=== PATIENT | female | born 1980 ===

== ENCOUNTER 2020-08-18 11:02 | Outpatient (REF) | payer OTHER, SELFPAY ==
[2020-08-18 12:49] LABS: TSH reflex Free T4 0.01 mIU/mL (0.32-4.0)
[2020-08-18 13:00] LABS: Folate 9.7 ng/mL (> or = 4.0); Vitamin B12 380 pg/mL (200-900)
[2020-08-18 13:43] LABS: Free T4 (Free Thyroxine) 1.73 ng/dL (0.71-1.85)
[2020-08-22 12:22] LABS: Vitamin D 25-OH, D2 14 ng/mL; Vitamin D 25-OH, D3 8 ng/mL; Vitamin D 25-OH, Total 22 ng/mL (30-100)
== END 2020-08-18 11:03 | disposition home or self-care (01) ==
LOC: HO.LAB 11:02
PROVIDERS: PCP Internal Medicine; Visit Provider Internal Medicine
DX: E55.9 Vitamin D deficiency, unspecified (principal); E06.3 Autoimmune thyroiditis; D51.0 Vitamin B12 deficiency anemia due to intrinsic factor deficiency
CPT/HCPCS: 36415; 82306; 82607; 82746; 84439; 84443

== ENCOUNTER 2021-01-22 10:30 | Emergency (ER) | payer OTHER, SELFPAY ==
[2021-01-22 11:29] VITALS: BP 156/86; PULSE 70; RESP 18; TEMP 36.9; O2SAT 99; BMI 29.2
[2021-01-22 13:05] LABS: MANUAL DIFF FLAG NO
[2021-01-22 13:06] LABS: Basophils Absolute Auto 0.1 X10*3/uL (0.0-0.2); Basophils Percent Auto 0.9 % (0-2); Eosinophils Absolute Auto 0.2 X10*3/uL (0.0-0.4); Eosinophils Percent Auto 2.3 % (0-4); Hematocrit 40.2 % (37-47); Hemoglobin 13.3 g/dl (12.0-16.0); Imm Gran Abs Auto 0.06 X10*3/uL (0.00-0.03); Imm Gran Pct Auto 0.6 % (0.0-0.4); Lymphocytes Absolute Auto 2.8 X10*3/uL (1.2-4.9); Lymphocytes Percent Auto 27.8 % (20-40); Mean Corpuscular HGB Conc 33.1 g/dl (31.0-35.0); Mean Corpuscular Hemoglobin 28.9 pg (27.0-33.0); Mean Corpuscular Volume 87.4 fL (80-98); Mean Platelet Volume 10.2 fL (9.4-12.3); Monocytes Absolute Auto 0.6 X10*3/uL (0.1-1.2); Neutrophils Absolute Auto 6.3 X10*3/uL (2.0-8.3); Neutrophils Percent Auto 62.4 % (45-73); Platelet Count 260 X10*3/uL (160-400); White Blood Count 10.2 X10*3/uL (4.8-10.8)
[2021-01-22 13:46] LABS: Alanine Aminotransferase 7 U/L (0-31); Albumin Level 4.1 g/dL (3.5-5.0); Alkaline Phosphatase 78 U/L (39-117); Anion Gap 9 (12-20); Aspartate Amino Transferase 13 U/L (5-31); Bilirubin Total 0.5 mg/dL (0.0-1.0); Blood Urea Nitrogen 9 mg/dL (9-16); Carbon Dioxide 25 mmol/L (22-29); Chloride 109 mmol/L (96-108); Creatinine Clr Calc Pharmacy 86.2; Estimated Glomerular Filt Rate > 60; Glucose Random 99 mg/dL (60-115); Lipase 9 U/L (8-78); Potassium 4.4 mmol/L (3.3-5.1); Sodium 139 mmol/L (135-145); Total Protein 6.7 g/dL (6.5-8.0)
== END 2021-01-22 15:14 | disposition left against medical advice (07) ==
PROVIDERS: Emergency Provider Emergency Medicine; PCP Internal Medicine
DX: R10.9 Unspecified abdominal pain (principal)
CPT/HCPCS: 36415; 80053; 83690; 85025; 99282; 99283

== ENCOUNTER 2021-01-22 16:17 | Outpatient (REF) | payer OTHER, SELFPAY ==
[2021-01-22 18:18] LABS: Glucose Urine UA NEG (NEG); Leukocyte Esterase Urine NEG (NEG); Nitrite Urine NEG (NEG); PH 6.5 (5.0-8.0); Specific Gravity - Urine <= 1.005 (1.005-1.025); Urine Blood 2+ (NEG); Urine Ketones NEG (NEG); Urine Protein NEG (NEG-TRACE)
[2021-01-22 18:20] LABS: Appearance Urine CLEAR; Color Urine YELLOW
[2021-01-22 18:52] LABS: Bacteria Urine 1+ /LPF; Squamous Epithelial Cell Urine 1+ /LPF; WBC Urine 0-2 /HPF (0-4)
== END 2021-01-22 16:18 | disposition home or self-care (01) ==
LOC: HO.LAB 16:17
PROVIDERS: PCP Internal Medicine; Visit Provider Internal Medicine
DX: R30.0 Dysuria (principal)
CPT/HCPCS: 81001

== ENCOUNTER 2021-03-29 15:07 | Outpatient (REF) | payer OTHER, SELFPAY ==
[2021-03-29 15:45] LABS: MANUAL DIFF FLAG NO
[2021-03-29 15:51] LABS: Basophils Percent Auto 0.6 % (0-2); Eosinophils Absolute Auto 0.1 X10*3/uL (0.0-0.4); Eosinophils Percent Auto 1.9 % (0-4); Imm Gran Abs Auto 0.02 X10*3/uL (0.00-0.03); Imm Gran Pct Auto 0.3 % (0.0-0.4); Lymphocytes Absolute Auto 2.3 X10*3/uL (1.2-4.9); Lymphocytes Percent Auto 31.4 % (20-40); Mean Corpuscular HGB Conc 33.3 g/dl (31.0-35.0); Mean Corpuscular Volume 87.1 fL (80-98); Mean Platelet Volume 10.6 fL (9.4-12.3); Monocytes Absolute Auto 0.6 X10*3/uL (0.1-1.2); Monocytes Percent Auto 8.3 % (2-11); Neutrophils Absolute Auto 4.2 X10*3/uL (2.0-8.3); Neutrophils Percent Auto 57.5 % (45-73); Platelet Count 241 X10*3/uL (160-400); Red Blood Count 4.48 X10*6/uL (4.20-5.50); White Blood Count 7.3 X10*3/uL (4.8-10.8)
[2021-03-29 16:27] LABS: Thyroid Stimulating Hormone 0.08 uIU/mL (0.32-4.0)
[2021-03-29 16:39] LABS: Folate 9.1 ng/mL (> or = 4.0); Vitamin B12 838 pg/mL (200-900)
[2021-04-02 11:47] LABS: Vitamin D 25-OH, D2 10 ng/mL; Vitamin D 25-OH, D3 22 ng/mL; Vitamin D 25-OH, Total 32 ng/mL (30-100)
== END 2021-03-29 15:08 | disposition home or self-care (01) ==
LOC: HO.LAB 15:07
PROVIDERS: PCP Internal Medicine; Visit Provider Internal Medicine
DX: E06.3 Autoimmune thyroiditis (principal); D51.0 Vitamin B12 deficiency anemia due to intrinsic factor deficiency; D64.9 Anemia, unspecified; E55.9 Vitamin D deficiency, unspecified
CPT/HCPCS: 36415; 82306; 82607; 82746; 84443; 85025

== ENCOUNTER 2021-08-08 09:26 | Outpatient (REF) | payer OTHER, SELFPAY ==
[2021-08-08 09:54] LABS: MANUAL DIFF FLAG NO
[2021-08-08 10:19] LABS: Basophils Absolute Auto 0.1 X10*3/uL (0.0-0.2); Basophils Percent Auto 0.8 % (0-2); Eosinophils Absolute Auto 0.5 X10*3/uL (0.0-0.4); Eosinophils Percent Auto 5.8 % (0-4); Hematocrit 39.1 % (37.0-47.0); Imm Gran Abs Auto 0.03 X10*3/uL (0.00-0.03); Imm Gran Pct Auto 0.3 % (0.0-0.4); Lymphocytes Percent Auto 35.1 % (20-40); Mean Corpuscular HGB Conc 33.2 g/dl (31.0-35.0); Mean Corpuscular Hemoglobin 29.1 pg (27.0-33.0); Mean Corpuscular Volume 87.5 fL (80.0-98.0); Mean Platelet Volume 10.7 fL (9.4-12.3); Monocytes Absolute Auto 0.6 X10*3/uL (0.1-1.2); Monocytes Percent Auto 7.3 % (2-11); Neutrophils Absolute Auto 4.4 x10*3/uL (2.0-8.3); Neutrophils Percent Auto 50.7 % (45-73); Platelet Count 293 X10*3/uL (160-400); Red Blood Count 4.47 X10*6/uL (4.20-5.50); Red Cell Distribution Width 12.5 % (11.0-16.0); White Blood Count 8.6 X10*3/uL (4.8-10.8)
[2021-08-08 10:52] LABS: Alanine Aminotransferase 29 U/L (0-31); Albumin Level 3.9 g/dL (3.5-5.0); Alkaline Phosphatase 83 U/L (39-117); Anion Gap 10 (12-20); Aspartate Amino Transferase 20 U/L (5-31); Bilirubin Total 0.7 mg/dL (0.0-1.0); Blood Urea Nitrogen 11 mg/dL (9-16); Carbon Dioxide 26 mmol/L (22-29); Chloride 107 mmol/L (96-108); Cholesterol 130 mg/dL; Estimated Glomerular Filt Rate > 60; Glucose Fasting 95 mg/dL (60-99); HDL Cholesterol 40 mg/dL; LDL Cholesterol Calculated 78 mg/dl; Potassium 4.3 mmol/L (3.3-5.1); Sodium 139 mmol/L (135-145); Total Protein 6.7 g/dL (6.5-8.0); Triglycerides 60 mg/dL
[2021-08-08 11:12] LABS: Thyroid Stimulating Hormone 0.22 uIU/mL (0.32-4.0)
[2021-08-08 11:33] LABS: Folate 5.5 ng/mL (> or = 4.0); Vitamin B12 380 pg/mL (200-900)
[2021-08-14 12:51] LABS: Vitamin D 25-OH, D2 9 ng/mL; Vitamin D 25-OH, D3 13 ng/mL; Vitamin D 25-OH, Total 22 ng/mL (30-100)
== END 2021-08-08 09:27 | disposition home or self-care (01) ==
LOC: HO.LAB 09:26
PROVIDERS: PCP Internal Medicine; Visit Provider Internal Medicine
DX: D51.0 Vitamin B12 deficiency anemia due to intrinsic factor deficiency (principal); D64.9 Anemia, unspecified; E55.9 Vitamin D deficiency, unspecified; K21.9 Gastro-esophageal reflux disease without esophagitis; R30.0 Dysuria; E06.3 Autoimmune thyroiditis; E66.3 Overweight
CPT/HCPCS: 36415; 80053; 80061; 82306; 82607; 82746; 84443; 85025

== ENCOUNTER 2021-08-13 13:35 | Outpatient (REF) | payer OTHER, SELFPAY ==
--- NOTE | ~2021-08-13 | MM_ITS ---
EXAMINATION: MM SCREENING DIGITAL BREAST TOMOSYNTHESIS, BILATERAL CLINICAL INFORMATION: Screening. Asymptomatic. Age 41. No prior breast imaging. No known family history of breast cancer. The lifetime risk of breast cancer based on the Tyrer-Cuzick Model is 7%. COMPARISON: None (current study represents initial baseline exam). TECHNIQUE: Digital breast tomosynthesis is performed in both the craniocaudal and mediolateral oblique views along with computer-aided detection (CAD). Synthesized 2D images are generated from the tomosynthesis. FINDINGS: There are scattered areas of fibroglandular density (ACR BI-RADS breast composition Category b). There are no significant masses, abnormal calcifications, or other abnormalities. The axilla and skin contours are unremarkable. MM/MM tomosynthesis screening BI IMPRESSION: No mammographic evidence of malignancy. ASSESSMENT: BI-RADS 1: Negative RECOMMENDATION: Routine annual mammography screening. This patient's information was entered into a reminder system with a target due date for their next mammogram.
== END 2021-08-13 13:36 | disposition home or self-care (01) ==
LOC: HO.MAMMO 13:35
PROVIDERS: PCP Internal Medicine; Visit Provider Internal Medicine
DX: Z12.31 Encounter for screening mammogram for malignant neoplasm of breast (principal)
CPT/HCPCS: 77063; 77067

== ENCOUNTER 2021-11-21 11:26 | Outpatient (REF) | payer OTHER, SELFPAY ==
[2021-11-21 13:25] LABS: Appearance Urine HAZY; Color Urine YELLOW; Glucose Urine UA NEG (NEG); Leukocyte Esterase Urine NEG (NEG); Nitrite Urine NEG (NEG); UACC Culture Trigger NO; Urine Blood 2+ (NEG); Urine Ketones NEG (NEG); Urine Protein NEG (NEG-TRACE)
[2021-11-21 14:10] LABS: Thyroid Stimulating Hormone 1.25 uIU/mL (0.32-4.0); Vitamin D 25-OH Total 22.2 ng/mL (>30)
[2021-11-21 14:40] LABS: Bacteria Urine 4+ /LPF; Squamous Epithelial Cell Urine 1+ /LPF
[2021-11-21 14:41] LABS: WBC Urine 0-2 /HPF (0-4)
[2021-11-21 16:20] LABS: Folate 11.2 ng/mL (> or = 4.0); Vitamin B12 278 pg/mL (200-900)
== END 2021-11-21 11:27 | disposition home or self-care (01) ==
LOC: HO.LAB 11:26
PROVIDERS: PCP Internal Medicine; Visit Provider Internal Medicine
DX: E55.9 Vitamin D deficiency, unspecified (principal); E06.3 Autoimmune thyroiditis; D51.0 Vitamin B12 deficiency anemia due to intrinsic factor deficiency
CPT/HCPCS: 36415; 81001; 82306; 82607; 82746; 84443

== ENCOUNTER 2022-03-28 16:11 | Outpatient (REF) | payer OTHER, SELFPAY ==
[2022-03-28 17:02] LABS: Appearance Urine Hazy; Color Urine Yellow; Glucose Urine UA Negative (Negative); Leukocyte Esterase Urine Negative (Negative); Nitrite Urine Positive (Negative); Urine Blood Large (3+) (Negative); Urine Ketones Trace mg/dL (Negative); Urine Protein Negative (Neg-Trace)
[2022-03-28 17:06] LABS: UACC Culture Trigger YES; WBC Urine 0-5 /HPF (0-5)
[2022-03-28 17:07] LABS: Bacteria Urine 3+ (None Seen); Hyaline Casts Urine 0-2 /LPF (0-2)
[2022-03-28 17:48] LABS: Thyroid Stimulating Hormone 1.99 uIU/mL (0.32-4.0); Vitamin D 25-OH Total 24.2 ng/mL (>30)
[2022-03-28 17:57] LABS: Folate 9.2 ng/mL (> or = 4.0); Vitamin B12 284 pg/mL (200-900)
== END 2022-03-28 16:12 | disposition home or self-care (01) ==
LOC: HO.LAB 16:11
PROVIDERS: PCP Internal Medicine; Visit Provider Internal Medicine
DX: E06.3 Autoimmune thyroiditis (principal); D51.0 Vitamin B12 deficiency anemia due to intrinsic factor deficiency; E55.9 Vitamin D deficiency, unspecified; R30.0 Dysuria; B96.20 Unspecified Escherichia coli [E. coli] as the cause of diseases classified elsewhere
CPT/HCPCS: 36415; 81001; 81003; 82306; 82607; 82746; 84443; 87086; 87088; 87186

== ENCOUNTER 2023-01-16 10:33 | Outpatient (REF) | payer OTHER, SELFPAY ==
[2023-01-16 11:22] LABS: Appearance Urine Clear; Color Urine Yellow; Glucose Urine UA Negative (Negative); Leukocyte Esterase Urine Small (1+) (Negative); Nitrite Urine Negative (Negative); Specific Gravity - Urine <= 1.005 (1.005-1.025); UMIC TRIGGER UACC YES; Urine Blood Small (1+) (Negative); Urine Ketones Negative (Negative); Urine Protein Negative (Neg-Trace)
[2023-01-16 11:27] LABS: Bacteria Urine Trace (None Seen); Hyaline Casts Urine 0-2 /LPF (0-2); UACC Culture Trigger YES
== END 2023-01-16 10:34 | disposition home or self-care (01) ==
LOC: HO.LAB 10:33
PROVIDERS: PCP Internal Medicine; Visit Provider Internal Medicine
DX: R39.9 Unspecified symptoms and signs involving the genitourinary system (principal)
CPT/HCPCS: 81001; 87086; 87088; 87186

== ENCOUNTER 2023-04-11 11:33 | Emergency (ER) | payer OTHER, SELFPAY ==
[2023-04-11 12:03] VITALS: BP 199/108; PULSE 80; RESP 18; TEMP 36.6; O2SAT 99; BMI 27.4
--- NOTE | 2023-04-11 12:03 | ED.GENADULT ---
HPI - General Adult General Chief complaint: General Medical Stated complaint: HBP 180/102 Related Data Home Medications Medication Instructions Recorded Confirmed omeprazole 20 mg capsule,delayed 20 mg PO QAM 08/17/20 04/15/23 release Previous Rx's Medication Instructions Recorded cyanocobalamin (vitamin B-12) 1,000 mcg PO DAILY 90 days #90 tabs 08/15/21 1,000 mcg tablet folic acid 1 mg tablet 1 mg PO DAILY 90 days #90 tabs 05/03/22 meloxicam 15 mg tablet 15 mg PO DAILY #14 tabs 07/17/22 levothyroxine 150 mcg tablet 150 mcg PO DAILY 90 days #90 tabs 09/30/22 Allergies Allergy/AdvReac Type Severity Reaction Status Date / Time varenicline [From Chantix] Allergy Intermediate behavioral Verified 04/15/23 15:06 health barium sulfate AdvReac Intermediate behavioral Verified 04/15/23 15:06 changes PMFSH Past Medical History Medical History GERD (gastroesophageal reflux disease) Hypovitaminosis D Autoimmune thyroiditis Pernicious anemia Surgical History History of tubal ligation Family History Family History Father Hypertension Mother Diabetes Hypertension Hyperlipidemia Maternal Grandmother Breast cancer Maternal Aunt Diabetes Social History Social History Housing: House Alcohol intake: current Alcohol intake frequency: holidays/special occasions only Alcohol type: beer Patient Tobacco Use Status: Current everyday Tobacco user Tobacco use type: Cigarette Cigarettes Per Day: 5 e-Cigarette/Vaping Use: Never Used Second Hand Smoke Exposure: No service: No Current occupational status: unemployed Cognitive needs: No Hearing needs: No Vision needs: No Physical Exam ED Vital Signs: BMI result Body Mass Index 27.4 NIH Stroke Scale Internal: Initial- Upon Arrival Time: 12:06 Level of Consciousness: Alert Level of Consciousness Questions: Answers both questions correctly Level of Consciousness Commands: Performs both tasks correctly Best Gaze: Normal Visual: No visual loss Facial Palsy: Normal Motor Arm (Right): No drift Motor Arm (Left): No drift Motor Leg (Right): No drift Motor Leg (Left): No drift Limb Ataxia: Absent Sensory: Normal Best Language: No aphasia Dysarthia: Normal Extinction and Inattention: No abnormality Score: 0 Course Course Course Narrative: This is a rapid medical exam: Additional HPI, ROS, PE not included below will be deferred to primary provider. Patient is a 42-year-old Latvian-speaking female presenting from the dentist's office where she was scheduled for a cleaning. States they checked her BP three times and it was high each time. States checked at home with her mother's machine and it was still elevated. Denies personal history of HTN but states her mother has history of HTN. Denies headache, chest pain, or shortness of breath but does reports some blurred vision which began today. NIHSS 0. Patient hypertensive in triage. Plan: EKG, labs Medical Decision Making Lab Data 04/11/23 12:44 04/11/23 12:44 Labs: Lab Results 04/11/23 Range/Units 12:44 WBC 7.8 (4.8-10.8) X10*3/uL RBC 4.90 (4.20-5.50) X10*6/uL Hgb 14.3 (12.0-16.0) g/dl Hct 42.6 (37.0-47.0) % MCV 86.9 (80.0-98.0) fL MCH 29.2 (27.0-33.0) pg MCHC 33.6 (31.0-35.0) g/dl RDW 13.2 (11.0-16.0) % Plt Count 234 (160-400) X10*3/uL MPV 10.1 (9.4-12.3) fL Immature Gran % (Auto) 0.3 (0.0-0.4) % Neut % (Auto) 55.3 (45-73) % Lymph % (Auto) 32.7 (20-40) % [place] % (Auto) 8.0 (2-11) % Eos % (Auto) 2.8 (0-4) % Baso % (Auto) 0.9 (0-2) % Lymph # (Auto) 2.5 (1.2-4.9) X10*3/uL [place] # (Auto) 0.6 (0.1-1.2) X10*3/uL Eos # (Auto) 0.2 (0.0-0.4) X10*3/uL Baso # (Auto) 0.1 (0.0-0.2) X10*3/uL Abs Immat Gran (auto) 0.02 (0.00-0.03) X10*3/uL Absolute Neuts (auto) 4.3 (2.0-8.3) x10*3/uL Absolute Nucleated RBC 0.000 (0.0-0.012) X10*3/uL Nucleated RBC % (auto) 0.0 (0.0-0.2) /100WBC Sodium 141 (135-145) mmol/L Potassium 4.2 (3.3-5.1) mmol/L Chloride 108 (96-108) mmol/L Carbon Dioxide 27 (22-29) mmol/L Anion Gap 10 L (12-20) BUN 9 (9-16) mg/dL Creatinine 0.81 (0.5-1.4) mg/dL Estim Creat Clear Calc 80.9 Estimated GFR > 60 Random Glucose 92 (60-115) mg/dL Calcium 9.3 (8.4-10.2) mg/dL Total Bilirubin 0.4 (0.0-1.0) mg/dL AST 16 (5-31) U/L ALT 17 (0-31) U/L Alkaline Phosphatase 73 (39-117) U/L Troponin I High Sens < 2.7 (<3.5-17.0) ng/L Total Protein 7.5 (6.5-8.0) g/dL Albumin 4.6 (3.5-5.0) g/dL Discharge Plan Discharge Clinical Impression: Elevated blood pressure reading Patient Disposition: Left W/O Completing Treatment Prescriptions: No Action cyanocobalamin (vitamin B-12) 1,000 mcg tablet 1,000 mcg PO DAILY 90 Days Qty: 90 3RF folic acid 1 mg tablet 1 mg PO DAILY 90 Days Qty: 90 1RF levothyroxine 150 mcg tablet 150 mcg PO DAILY 90 Days Qty: 90 1RF omeprazole 20 mg capsule,delayed release(DR/EC) 20 mg PO QAM meloxicam 15 mg tablet 15 mg PO DAILY Qty: 14 0RF Discharge Date/Time: 04/11/23 20:28
--- NOTE | 2023-04-11 12:13 | ECG_ITS ---
Test Reason : hbp Blood Pressure : / mmHG Vent. Rate : 063 BPM Atrial Rate : 063 BPM P-R Int : 162 ms QRS Dur : 082 ms QT Int : 412 ms P-R-T Axes : 041 046 040 degrees QTc Int : 421 ms Normal sinus rhythm Normal ECG When compared with ECG of 02-FEB-2019 13:23, No significant change was found Referred By: Mary Otero Electronically Signed By:CORNELIUS HASTINGS
[2023-04-11 12:49] LABS: MANUAL DIFF FLAG NO
[2023-04-11 12:53] LABS: Basophils Absolute Auto 0.1 X10*3/uL (0.0-0.2); Basophils Percent Auto 0.9 % (0-2); Eosinophils Absolute Auto 0.2 X10*3/uL (0.0-0.4); Eosinophils Percent Auto 2.8 % (0-4); Hematocrit 42.6 % (37.0-47.0); Hemoglobin 14.3 g/dl (12.0-16.0); Imm Gran Abs Auto 0.02 X10*3/uL (0.00-0.03); Imm Gran Pct Auto 0.3 % (0.0-0.4); Lymphocytes Absolute Auto 2.5 X10*3/uL (1.2-4.9); Lymphocytes Percent Auto 32.7 % (20-40); Mean Corpuscular HGB Conc 33.6 g/dl (31.0-35.0); Mean Corpuscular Hemoglobin 29.2 pg (27.0-33.0); Mean Corpuscular Volume 86.9 fL (80.0-98.0); Mean Platelet Volume 10.1 fL (9.4-12.3); Monocytes Absolute Auto 0.6 X10*3/uL (0.1-1.2); Neutrophils Absolute Auto 4.3 x10*3/uL (2.0-8.3); Neutrophils Percent Auto 55.3 % (45-73); Platelet Count 234 X10*3/uL (160-400); Red Cell Distribution Width 13.2 % (11.0-16.0); White Blood Count 7.8 X10*3/uL (4.8-10.8)
[2023-04-11 13:08] LABS: Alanine Aminotransferase 17 U/L (0-31); Albumin Level 4.6 g/dL (3.5-5.0); Alkaline Phosphatase 73 U/L (39-117); Anion Gap 10 (12-20); Aspartate Amino Transferase 16 U/L (5-31); Bilirubin Total 0.4 mg/dL (0.0-1.0); Blood Urea Nitrogen 9 mg/dL (9-16); Calcium 9.3 mg/dL (8.4-10.2); Carbon Dioxide 27 mmol/L (22-29); Chloride 108 mmol/L (96-108); Creatinine Clr Calc Pharmacy 80.9; Estimated Glomerular Filt Rate > 60; Glucose Random 92 mg/dL (60-115); Potassium 4.2 mmol/L (3.3-5.1); Sodium 141 mmol/L (135-145); Total Protein 7.5 g/dL (6.5-8.0)
[2023-04-11 13:20] LABS: Troponin-I High Sensitivity < 2.7 ng/L (<3.5-17.0)
== END 2023-04-11 20:28 | disposition left against medical advice (07) ==
PROVIDERS: Registered Nurse Emergency; Emergency Provider Emergency Medicine; PCP Internal Medicine
DX: I10 Essential (primary) hypertension (principal); F17.210 Nicotine dependence, cigarettes, uncomplicated; R29.700 NIHSS score 0
CPT/HCPCS: 36415; 80053; 84484; 85025; 93005; 99283

== ENCOUNTER 2023-04-15 14:24 | Outpatient (AMB) | payer OTHER, SELFPAY ==
[2023-04-15 14:25] VITALS: BP 160/100; PULSE 111; O2SAT 99; BMI 27.7
--- NOTE | 2023-04-15 14:25 | MHC.PC.OV ---
Vital Signs 04/15/23 14:25 04/15/23 15:11 Height 5 ft 2 in Weight 151 lb 4 oz BMI 27.7 BP 160/100 H 170/110 H Blood Pressure Location Lt brachial Lt brachial Position Sitting Sitting Pulse 111 H Pulse Source Pulse Oximeter Pulse Oximetry (%) 99 Oxygen Delivery Method Room Air Intake Visit Reasons: high bp Legal Researcher Required: No Accompanied by: Self / Same As Patient Allergies varenicline [From Chantix] Allergy (Intermediate, Verified 04/15/23 15:06) behavioral health barium sulfate Adverse Reaction (Intermediate, Verified 04/15/23 15:06) behavioral changes Medication List - Last Reconciled 04/15/23 by David Randall MD cyanocobalamin (vitamin B-12) 1,000 mcg PO DAILY 90 days folic acid 1 mg PO DAILY 90 days levothyroxine 150 mcg PO DAILY 90 days meloxicam 15 mg PO DAILY omeprazole 20 mg PO QAM Tobacco use date assessed: 04/15/23 Dental Screening Dental Screen Date: 04/15/23 Did you have a dental visit in the last 12 months?: Yes Did you have a dental problem in the last 6 months where you did not have access to dental care?: No Was dental information given to patient?: Patient has dentist HPI high bp HPI Details Patient comes in today for BP evaluation States that she was going to be scheduled for a dental cleaning by her dentist but they noticed that her blood pressure was high when she was at their office a few days ago and was advised to get a clearance note from her PCP regarding her blood pressure as they cannot do the cleaning until her blood pressure is controlled/normal Patient states that she does not have a history of high blood pressure although she has a few family members (mother, siblings) with HTN and on BP meds Relates (+) pain/pressure/tightness at times over the back of her neck lately but she denies any headaches or dizziness Denies any chest pains, no SOB No nausea/vomiting, no abdominal pain No change in bowel habits noted PFSH Medical History GERD (gastroesophageal reflux disease) Hypovitaminosis D Autoimmune thyroiditis Pernicious anemia Surgical History History of tubal ligation Family History Father Hypertension Mother Diabetes Hypertension Hyperlipidemia Maternal Grandmother Breast cancer Maternal Aunt Diabetes Social History Housing: House Alcohol intake: current Alcohol intake frequency: holidays/special occasions only Alcohol type: beer Patient Tobacco Use Status: Current everyday Tobacco user Tobacco use type: Cigarette Cigarettes Per Day: 5 e-Cigarette/Vaping Use: Never Used Second Hand Smoke Exposure: No service: No Current occupational status: unemployed Cognitive needs: No Hearing needs: No Vision needs: No Questionnaire PHQ-9 Over the last 2 weeks, how often have you been bothered by any of the following problems? 1. Little interest or pleasure in doing things: not at all 2. Feeling down, depressed, or hopeless: not at all 3. Trouble falling or staying asleep, or sleeping too much: not at all 4. Feeling tired or having little energy: not at all 5. Poor appetite or overeating: not at all 6. Feeling bad about yourself - or that you are a failure or have let yourself or your family down: not at all 7. Trouble concentrating on things, such as reading the newspaper or watching television: not at all 8. Moving or speaking so slowly that other people could have noticed. Or the opposite - being so fidgety or restless that you have been moving around a lot more than usual: not at all 9. Thoughts that you would be better off or of hurting yourself in some way: not at all Total score: 0 Depression Screening Interpretation: Negative 09088 - PHQ-9 Billing: Yes Source: Developed by Drs. Andrew Toth, Kayla Junior, Ralph Matt and colleagues, with an educational husam from [employer]. Thrive Questionnaire Date Thrive assessed: 04/15/23 I am a: Patient What is your living situation today?: I have a steady place to live Within the past 12 months, did the food you bought not last and you didn't have the money to get more?: Never true Within the past 12 months, did you worry whether your food would run out before you got money to buy more?: Never true Do you have trouble paying for medicines?: No Do you have trouble getting transportation to medical appointments?: No Do you have trouble paying your heating and electricity bill?: No Do you have trouble taking care of your child, family member or friend?: No Do you have trouble with day-to-day activities such as bathing, preparing meals, shopping, managing finances, etc.?: No Are you currently unemployed and looking for a job?: No Are you interested in more education?: No Please select the resources that you would like help with: None Currently or been in a relationship where the following occur: no concerns reported AUDIT C Alcohol Use Questionnaire (AUDIT-C) 1. How often do you have a drink containing alcohol?: Monthly or less 2. How many drinks containing alcohol do you have on a typical day when you are drinking?: 1 or 2 3. How often do you have six or more drinks on one occasion?: Never Total Score: 1 Score Reviewed/Action Taken: Yes SAMI-7 AMB Questionnaire SAMI-7 Date SAMI - 7 assessed: 04/15/23 Feeling nervous, anxious, or on edge: 0 = Not at all Not being able to stop or control worryin = Not at all Worrying too much about different things: 0 = Not at all Trouble relaxin = Not at all Being so restless that it is hard to sit still: 0 = Not at all Becoming easily annoyed or irritable: 0 = Not at all Feeling afraid as if something awful might happen: 0 = Not at all Total SAMI-7 score (0-4 normal; 5-9 mild; 10-14 moderate; 15-21 severe): 0 Source: Developed by Drs. Andrew Toth, Kayla Junior, Ralph Matt and colleagues, with an educational husam from [employer]. Review of Systems Const Denies fatigue, Denies fever(s) and Denies headache(s) ENT Denies dysphagia, Denies dizziness, Denies otalgia, Denies headache(s), Reports neck pain (on and off pressure/pain/discomfort over back of neck at times lately), Denies odynophagia and Denies sore throat Card Denies chest pain, Denies palpitations and Denies dyspnea Resp Denies cough and Denies dyspnea GI Denies abdominal pain, Denies constipation, Denies dysphagia, Denies heartburn, Denies diarrhea, Denies nausea, Denies odynophagia and Denies vomiting Denies difficulty voiding, Denies nocturia and Denies dysuria Musc Reports neck pain (on and off pressure/pain/discomfort over back of neck at times lately) Neuro Denies dizziness and Denies headache(s) Endo Denies fatigue and Denies palpitations Physical exam (Primary Care) Vital Signs: Last Vital Signs Pulse 111 H 04/15/23 14:25 BP 170/110 H 04/15/23 15:11 Pulse Ox 99 04/15/23 14:25 Oxygen Delivery Method Room Air 04/15/23 14:25 BMI result Body Mass Index 27.7 Tobacco/Smoking Status: Tobacco use Status Tobacco use date assessed 04/15/23 04/15/23 14:31 Patient Tobacco Use Status Current everyday Tobacco 04/15/23 14:31 Tobacco use type Cigarette 04/15/23 14:31 e-Cigarette/Vaping Use Never Used 04/15/23 14:31 PHQ-9: PHQ-9 Score PHQ-9: Total score 0 04/15/23 15:32 Depression Screening Interpretation: Negative Thrive Assessment: Date of Thrive Assessment Date Thrive assessed 04/15/23 04/15/23 14:31 Currently or been in a relationship where the following occur: no concerns reported Const General: no acute distress and alert Neck Neck: Yes no lymphadenopathy and Yes supple Resp Auscultation: clear to auscultation bilaterally, no rales and no wheezes Cardio Rate: regular rate Rhythm: regular rhythm Heart sounds: no murmurs GI Palpation (GI): Soft to palpation and nontender Auscultation: normal bowel sounds Extrem General: Yes no clubbing, cyanosis or edema Assessment and Plan Assessment & Plan (1) Elevated blood pressure reading without diagnosis of hypertension: Code(s): R03.0 - Elevated blood-pressure reading, without diagnosis of hypertension Plan: Repeat BP in the office today is at 170/110 mm Patient states that she is quite anxious today about her BP and is wondering how much effect anxiety can have on one's blood pressure Advised that she has a few high BP readings already in her chart and with her family history, it is likely that even though she's never had high blood pressure in the past, she is now starting to manifest that as well, although anxiety can raise her BP even higher I will have her return next week to see one of the nurse navigators to follow up on her blood pressure and if it is still high at the time, then they can reach out to her PCP to consider starting her on some Rx for her HTN Discussed low sodium diet and advised that the goal here is a systolic BP of at least 120 to 130 mm or lower and diastolic BP of 85 mm or less Plan To return as scheduled in May 2023 for her annual physical examination with her PCP Coding Level of Care Code Est Pt Level 3 (99811) Diagnoses Elevated blood pressure reading without diagnosis of hypertension R03.0
[2023-04-15 15:11] VITALS: BP 170/110
== END 2023-04-15 15:13 | disposition home or self-care (01) ==
PROVIDERS: PCP Internal Medicine; Visit Provider Internal Medicine
DX: R03.0 Elevated blood-pressure reading, without diagnosis of hypertension (principal)
CPT/HCPCS: 99213

== ENCOUNTER 2023-06-02 13:29 | Outpatient (AMB) | payer OTHER, SELFPAY ==
[2023-06-02 13:33] VITALS: BP 160/86; PULSE 110; O2SAT 99; BMI 26.4
--- NOTE | 2023-06-02 13:33 | A.OFFPC_ITS ---
Vital Signs 06/02/23 13:33 06/02/23 14:08 Height 5 ft 2 in Weight 144 lb 6 oz BMI 26.4 BP 160/86 H 160/90 H Blood Pressure Location Lt brachial Lt brachial Position Sitting Sitting Pulse 110 H Pulse Source Pulse Oximeter Pulse Oximetry (%) 99 Oxygen Delivery Method Room Air Intake Visit Reasons: PE Condemnation Engineer Required: No Accompanied by: Self / Same As Patient Allergies varenicline [From Chantix] Allergy (Intermediate, Verified 06/02/23 13:55) behavioral health barium sulfate Adverse Reaction (Intermediate, Verified 06/02/23 13:55) behavioral changes Medication List - Last Reconciled 06/02/23 by Brissa Peters MD cyanocobalamin (vitamin B-12) 1,000 mcg PO DAILY 90 days folic acid 1 mg PO DAILY 90 days levothyroxine 150 mcg PO DAILY 90 days losartan 25 mg PO DAILY 90 days omeprazole 20 mg PO QAM Tobacco use date assessed: 04/15/23 HPI HPI Comments History of Present Illness Details This is a 43-year-old female that comes for her physical exam. Last mammogram was July 2021. Last Pap smear was about 2 years ago and was normal as per patient. No chest pain or shortness of breath. [facility] Medical History GERD (gastroesophageal reflux disease) Hypovitaminosis D Autoimmune thyroiditis Pernicious anemia Surgical History History of tubal ligation Family History (Updated 06/02/23 @ 14:00 by Brissa Peters MD) Father Hypertension Mother Diabetes Hypertension Hyperlipidemia Hypothyroidism Maternal Grandmother Breast cancer Maternal Aunt Diabetes Social History Housing: House Alcohol intake: current Alcohol intake frequency: holidays/special occasions only Alcohol type: beer Patient Tobacco Use Status: Current everyday Tobacco user Tobacco use type: Cigarette Cigarettes Per Day: 5 e-Cigarette/Vaping Use: Never Used Second Hand Smoke Exposure: No service: No Current occupational status: unemployed Cognitive needs: No Hearing needs: No Vision needs: No Questionnaire Thrive Questionnaire Date Thrive assessed: 04/15/23 AUDIT C Alcohol Use Questionnaire (AUDIT-C) 1. How often do you have a drink containing alcohol?: Monthly or less 2. How many drinks containing alcohol do you have on a typical day when you are drinking?: 1 or 2 3. How often do you have six or more drinks on one occasion?: Never Total Score: 1 Score Reviewed/Action Taken: No SAMI-7 AMB Questionnaire SAMI-7 Date SAMI - 7 assessed: 04/15/23 Source: Developed by Drs. Andrew Toth, Kayla Junior, Ralph Matt and colleagues, with an educational husam from [employer]. Review of Systems Const All systems reviewed & are unremarkable except as noted in HPI and below Eyes Reports no additional complaints, Denies change in vision and Denies other vi sual disturbances Card Denies chest pain at rest, Denies chest pain with activity, Denies edema, Denies irregular heart rhythm, Denies claudication, Denies dyspnea, Denies dyspnea on exertion, Denies orthopnea, Denies paroxysmal nocturnal dyspnea and Denies slow heart rate Resp Denies cough, Denies dyspnea and Denies dyspnea on exertion GI Denies abdominal pain, Denies change in bowel habits, Denies excessive flatus, Denies nausea and Denies vomiting Denies urinary incontinence, Denies urinary hesitancy and Denies urinary urgency Musc Denies abnormal gait, Denies atrophy, Denies deformity and Denies limited range of motion Skin/Breast Denies bleeding lesions, Denies changing lesions and Denies rash Neuro Denies abnormal gait, Denies behavioral changes, Denies confusion and Denies lack of coordination Psych Denies behavioral changes and Denies confusion Physical exam (Primary Care) Vital Signs: Last Vital Signs Pulse 110 H 06/02/23 13:33 BP 160/86 H 06/02/23 13:33 Pulse Ox 99 06/02/23 13:33 Oxygen Delivery Method Room Air 06/02/23 13:33 BMI result Body Mass Index 26.4 Tobacco/Smoking Status: Tobacco use Status Tobacco use date assessed 04/15/23 06/02/23 13:33 Patient Tobacco Use Status Current everyday Tobacco 06/02/23 13:33 Tobacco use type Cigarette 06/02/23 13:33 e-Cigarette/Vaping Use Never Used 06/02/23 13:33 Thrive Assessment: Date of Thrive Assessment Date Thrive assessed 04/15/23 06/02/23 13:33 Const General: No confusion Orientation/consciousness: patient oriented x3 and No confusion HENMT Head: Yes normal to inspection, Yes normocephalic and Yes atraumatic Ears: external ears normal Eyes General: appearance normal, both eyes and all related structures Eyelids: Yes eyelids normal Conjunctivae: conjunctivae normal Neck Neck: Yes normal visual inspection and Yes supple Resp Effort & Inspection: normal respiratory effort Auscultation: clear to auscultation bilaterally Cardio Jugular venous distension: no JVD Rate: regular rate Rhythm: regular rhythm Heart sounds: S1 normal heart sound present and S2 normal heart sound present GI Inspection: Yes normal to inspection Palpation (GI): Soft to palpation and nontender Auscultation: normal bowel sounds Skin General skin exam: no rashes or lesions noted Neuro General: patient oriented x3, no focal motor deficits and No confusion Extrem General: Yes full ROM Psych Appearance: grossly normal Office Procedures Flu Questionnaire Does the patient have a severe egg allergy?: No Does the patient have severe life threatening allergies?: No Does the patient have a fever or illness today?: No Has the patient ever had Guillain-[place] Syndrome?: No Has the patient ever had any past reaction to a flu shot?: No Immunizations flu vacc [id number] 6mos up(PF) 60 mcg(15 mcgx4)/0.5 mL IM syringe Performing Provider: Brissa Peters MD Performing Location: [facility] Administered by: BRONSON Burkett on 06/02/23 13:49 Dose Route Admin Location Dispensed Lot Number Expiration Date [facility] Slot Service Specialist 0.5 mL IM Right Deltoid 0.5 mL [id number] 01/25/24 [id number] [employer] VIS Given Date VIS Provided VIS Publication Date 06/02/23 Single Vaccine 21 Eligibility Eligibility Date Funding Source Not [facility] Eligible 06/02/23 Private Assessment and Plan Assessment & Plan (1) Physical exam: Code(s): Z00.00 - Encounter for general adult medical examination without abnormal findings Plan: Repeat in a year Orders: Orders Vitamin B12 and Folate Today E53.8 - Deficiency of other specified B group vitamins Lipid Panel Today E78.5 - Hyperlipidemia, unspecified IRON PROFILE Today D64.9 - Anemia, unspecified Comprehensive [place]. Panel Fast Today K21.9 - Gastro-esophageal reflux disease without esophagitis Influenza [id number] Immunization Today Z23 - Encounter for immunization MM screening mammo BI Today Z12.31 - Encounter for screening mammogram for malignant neoplasm of breast Vitamin D 25-OH Total Today E55.9 - Vitamin D deficiency, unspecified Complete Blood Count Auto Diff Today D64.9 - Anemia, unspecified Thyroid Stimulating Hormone Today E06.3 - Autoimmune thyroiditis Medications: New losartan 50 mg PO DAILY 90 tabs 1RF 90 days Changed From omeprazole 20 mg PO QAM To omeprazole 20 mg PO QAM 90 caps 1RF 90 days Refilled cyanocobalamin (vitamin B-12) 1,000 mcg PO DAILY 90 tabs 3RF 90 days folic acid 1 mg PO DAILY 90 tabs 1RF 90 days D51.0 - Vitamin B12 deficiency anemia due to intrinsic factor deficiency Discontinued losartan Discontinued Reason: Patient Completed Course 25 mg PO DAILY 90 days 90 tabs 1RF I10 - Essential (primary) hypertension Coding Level of Care Code Est Pt Prev Care 40-64y(06177) Diagnoses Physical exam Z00.00 Time Spent (min) 32
[2023-06-02 14:08] VITALS: BP 160/90
== END 2023-06-02 14:05 | disposition home or self-care (01) ==
PROVIDERS: PCP Internal Medicine; Visit Provider Internal Medicine
DX: Z00.00 Encounter for general adult medical examination without abnormal findings (principal); Z23 Encounter for immunization; K21.9 Gastro-esophageal reflux disease without esophagitis
CPT/HCPCS: 90471; 90686; 99396

== ENCOUNTER 2023-06-13 08:54 | Outpatient (REF) | payer OTHER, SELFPAY ==
--- NOTE | ~2023-06-13 | US_ITS ---
EXAMINATION: ULTRASOUND RENAL WITH DOPPLER CLINICAL INFORMATION: Hypertension. COMPARISON: None. TECHNIQUE: Real-time grayscale, color Doppler, and duplex Doppler evaluation of the kidneys and renal vasculature was performed. FINDINGS: RENAL MEASUREMENTS: Right: 10.4 x 3.6 x 5.3 cm (Sag x AP x TV) Left: 11.8 x 6.4 x 5.5 cm (Sag x AP x TV) The renal parenchyma appears normal. 9 mm simple cyst in the right upper kidney. No follow-up imaging is recommended. 5 mm nonobstructing calculus in the upper right kidney. DOPPLER INTERROGATION: AORTA: Mid aorta: 88 cm/sec RIGHT MAIN RENAL ARTERY: Proximal: 76 cm/sec Mid: 93 cm/sec Distal: 101 cm/sec LEFT MAIN RENAL ARTERY: Proximal: 85 cm/sec Mid: 89 cm/sec Distal: 100 cm/sec RENAL-AORTIC RATIO (RAR): Right: 1.15 Left: 1.14 SEGMENTAL RESISTIVE INDICES: Right: 0.62-0.70 Left: 0.61-0.71 RENAL VEINS: Right: Patent with normal waveform. Left: Patent with normal waveform. US/US renal doppler IMPRESSION: No evidence of hemodynamically significant renal artery stenosis. 5 mm nonobstructing calculus in the upper right kidney. No hydronephrosis.
== END 2023-06-13 08:55 | disposition home or self-care (01) ==
LOC: HO.US 08:54
PROVIDERS: PCP Internal Medicine; Visit Provider Internal Medicine
DX: I10 Essential (primary) hypertension (principal)
CPT/HCPCS: 93975

== ENCOUNTER 2023-10-09 09:09 | Outpatient (REF) | payer OTHER, SELFPAY ==
[2023-10-09 09:32] LABS: MANUAL DIFF FLAG NO
[2023-10-09 09:42] LABS: Basophils Absolute Auto 0.1 X10*3/uL (0.0-0.2); Basophils Percent Auto 0.8 % (0-2); Eosinophils Absolute Auto 0.3 X10*3/uL (0.0-0.4); Eosinophils Percent Auto 3.3 % (0-4); Hematocrit 40.6 % (37.0-47.0); Hemoglobin 13.8 g/dl (12.0-16.0); Imm Gran Abs Auto 0.02 X10*3/uL (0.00-0.03); Imm Gran Pct Auto 0.2 % (0.0-0.4); Lymphocytes Absolute Auto 3.2 X10*3/uL (1.2-4.9); Lymphocytes Percent Auto 35.8 % (20-40); Mean Corpuscular Hemoglobin 29.2 pg (27.0-33.0); Monocytes Absolute Auto 0.8 X10*3/uL (0.1-1.2); Monocytes Percent Auto 8.5 % (2-11); Neutrophils Absolute Auto 4.5 x10*3/uL (2.0-8.3); Neutrophils Percent Auto 51.4 % (45-73); Platelet Count 237 X10*3/uL (160-400); Red Blood Count 4.72 X10*6/uL (4.20-5.50); Red Cell Distribution Width 12.8 % (11.0-16.0); White Blood Count 8.8 X10*3/uL (4.8-10.8)
[2023-10-09 10:26] LABS: Alanine Aminotransferase 9 U/L (0-31); Alkaline Phosphatase 77 U/L (39-117); Anion Gap 10 (12-20); Aspartate Amino Transferase 13 U/L (5-31); Bilirubin Total 0.5 mg/dL (0.0-1.0); Blood Urea Nitrogen 10 mg/dL (9-16); Carbon Dioxide 24 mmol/L (22-29); Chloride 110 mmol/L (96-108); Cholesterol 137 mg/dL (<200); Estimated Glomerular Filt Rate > 60; Glucose Fasting 95 mg/dL (60-99); HDL Cholesterol 39 mg/dL (>40); Iron 113 mcg/dL (30-160); LDL Cholesterol Calculated 83 mg/dL (<100); Percent Iron Saturation 45 % (15-50); Potassium 4.4 mmol/L (3.3-5.1); Sodium 140 mmol/L (135-145); Total Iron Binding Capacity 252 mcg/dL (228-428); Total Protein 6.7 g/dL (6.5-8.0); Triglycerides 75 mg/dL (<150); Unsaturated Iron Binding 139 ug/dL
[2023-10-09 10:43] LABS: Thyroid Stimulating Hormone 2.12 uIU/mL (0.32-4.0); Vitamin D 25-OH Total 12.6 ng/mL (>30)
[2023-10-09 10:45] LABS: Appearance Urine Cloudy; Color Urine Yellow; Glucose Urine UA Negative (Negative); Leukocyte Esterase Urine Negative (Negative); Nitrite Urine Negative (Negative); PH 6.5 (5.0-9.0); UMIC TRIGGER UACC YES; Urine Blood Moderate (2+) (Negative); Urine Ketones Negative (Negative); Urine Protein Negative (Neg-Trace)
[2023-10-09 10:51] LABS: Bacteria Urine 1+ (None Seen); Hyaline Casts Urine 0-2 /LPF (0-2); RBC Urine >20 /HPF (0-2); WBC Urine 0-5 /HPF (0-5)
[2023-10-09 12:36] LABS: Vitamin B12 461 pg/mL (200-900)
== END 2023-10-09 09:10 | disposition home or self-care (01) ==
LOC: HO.LAB 09:09
PROVIDERS: Visit Provider Internal Medicine
DX: E55.9 Vitamin D deficiency, unspecified (principal); E53.8 Deficiency of other specified B group vitamins; E06.3 Autoimmune thyroiditis; E78.5 Hyperlipidemia, unspecified; D64.9 Anemia, unspecified; K21.9 Gastro-esophageal reflux disease without esophagitis; R39.9 Unspecified symptoms and signs involving the genitourinary system
CPT/HCPCS: 36415; 80053; 80061; 81001; 82306; 82607; 82746; 83540; 84443; 85025

== ENCOUNTER 2023-10-14 13:23 | Outpatient (AMB) | payer OTHER, SELFPAY ==
[2023-10-14 13:33] VITALS: BP 162/100; BMI 25.6
--- NOTE | 2023-10-14 13:33 | MHC.PC.OV ---
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: No Accompanied by: Self / Same As Patient Allergies varenicline [From Chantix] Allergy (Intermediate, Verified 10/14/23 13:46) behavioral health barium sulfate Adverse Reaction (Intermediate, Verified 10/14/23 13:46) behavioral changes Medication List - Last Reconciled 10/14/23 by Brissa Peters MD cholecalciferol (vitamin D3) 25 mcg PO DAILY 90 days cyanocobalamin (vitamin B-12) 1,000 mcg PO DAILY 90 days folic acid 1 mg PO DAILY 90 days levothyroxine 150 mcg PO DAILY 90 days losartan 50 mg PO DAILY 90 days omeprazole 20 mg PO QAM 90 days Tobacco use date assessed: 10/14/23 Dental Screening Dental Screen Date: 10/14/23 Did you have a dental visit in the last 12 months?: No Did you have a dental problem in the last 6 months where you did not have access to dental care?: No Was dental information given to patient?: Patient has dentist HPI HPI Comments History of Present Illness Details This is a 43-year-old female with uncontrolled hypertension, autoimmune thyroiditis, pernicious anemia and low vitamin-D that comes today for follow-up on blood pressure and recent labs. Blood pressure elevated and will be recheck in 3 weeks by nurse navigator. I will increase losartan from 50 mg to 100 mg. TSH normal. Vitamin B12 normal. Vitamin-D is low and supplements were sent to pharmacy. Ultrasound renal rule out renal artery stenosis as a cause of elevated blood pressure but did notice 5 mm left upper low kidney calculi and will be referred to Urology. She denies any chest pain or shortness of breath. No abdominal pain. [facility] Medical History (Updated 10/14/23 @ 13:57 by Brissa Peters MD) GERD (gastroesophageal reflux disease) Hypovitaminosis D Autoimmune thyroiditis Pernicious anemia Surgical History History of tubal ligation Family History Father Hypertension Mother Diabetes Hypertension Hyperlipidemia Hypothyroidism Maternal Grandmother Breast cancer Maternal Aunt Diabetes Social History Housing: House Alcohol intake: current Alcohol intake frequency: holidays/special occasions only Alcohol type: beer Patient Tobacco Use Status: Current everyday Tobacco user Tobacco use type: Cigarette Cigarettes Per Day: 5 e-Cigarette/Vaping Use: Never Used Second Hand Smoke Exposure: No service: No Current occupational status: unemployed Cognitive needs: No Hearing needs: No Vision needs: No Questionnaire PHQ-9 Over the last 2 weeks, how often have you been bothered by any of the following problems? 1. Little interest or pleasure in doing things: not at all 2. Feeling down, depressed, or hopeless: not at all 3. Trouble falling or staying asleep, or sleeping too much: not at all 4. Feeling tired or having little energy: not at all 5. Poor appetite or overeating: not at all 6. Feeling bad about yourself - or that you are a failure or have let yourself or your family down: not at all 7. Trouble concentrating on things, such as reading the newspaper or watching television: not at all 8. Moving or speaking so slowly that other people could have noticed. Or the opposite - being so fidgety or restless that you have been moving around a lot more than usual: not at all 9. Thoughts that you would be better off or of hurting yourself in some way: not at all Total score: 0 Source: Developed by Drs. Andrew Toth, Kayla Junior, Ralph Matt and colleagues, with an educational husam from [employer]. Thrive Questionnaire Date Thrive assessed: 10/14/23 I am a: Patient What is your living situation today?: I have a steady place to live Within the past 12 months, did the food you bought not last and you didn't have the money to get more?: Never true Within the past 12 months, did you worry whether your food would run out before you got money to buy more?: Never true Do you have trouble paying for medicines?: No Do you have trouble getting transportation to medical appointments?: No Do you have trouble paying your heating and electricity bill?: No Do you have trouble taking care of your child, family member or friend?: No Do you have trouble with day-to-day activities such as bathing, preparing meals, shopping, managing finances, etc.?: No Are you currently unemployed and looking for a job?: No Are you interested in more education?: No Please select the resources that you would like help with: None Currently or been in a relationship where the following occur: no concerns reported THRIVE Score: 0 AUDIT C Alcohol Use Questionnaire (AUDIT-C) 1. How often do you have a drink containing alcohol?: Monthly or less 2. How many drinks containing alcohol do you have on a typical day when you are drinking?: 1 or 2 3. How often do you have six or more drinks on one occasion?: Never Total Score: 1 SAMI-7 AMB Questionnaire SAMI-7 Date SAMI - 7 assessed: 10/14/23 Feeling nervous, anxious, or on edge: 0 = Not at all Not being able to stop or control worryin = Not at all Worrying too much about different things: 0 = Not at all Trouble relaxin = Not at all Being so restless that it is hard to sit still: 0 = Not at all Becoming easily annoyed or irritable: 0 = Not at all Feeling afraid as if something awful might happen: 0 = Not at all Total SAMI-7 score (0-4 normal; 5-9 mild; 10-14 moderate; 15-21 severe): 0 Source: Developed by Drs. Andrew Toth, Kayla Junior, Ralph Matt and colleagues, with an educational husam from [employer]. SAMI-7 Assessment Billing SAMI-7 Assessment Tool: SAMI-7 Assessment 66444 Review of Systems Const All systems reviewed & are unremarkable except as noted in HPI and below Eyes Reports no additional complaints, Denies change in vision and Denies other visual disturbances Card Denies chest pain at rest, Denies chest pain with activity, Denies edema, Denies irregular heart rhythm, Denies claudication, Denies dyspnea, Denies dyspnea on exertion, Denies orthopnea, Denies paroxysmal nocturnal dyspnea and Denies slow heart rate Resp Denies cough, Denies dyspnea and Denies dyspnea on exertion GI Denies abdominal pain, Denies change in bowel habits, Denies excessive flatus, Denies nausea and Denies vomiting Denies urinary incontinence, Denies urinary hesitancy and Denies urinary urgency Musc Denies abnormal gait, Denies atrophy, Denies deformity and Denies limited range of motion Skin/Breast Denies bleeding lesions, Denies changing lesions and Denies rash Neuro Denies abnormal gait and Denies lack of coordination Physical exam (Primary Care) Vital Signs: Last Vital Signs BP 162/100 H 10/14/23 13:33 BMI result Body Mass Index 25.6 Tobacco/Smoking Status: Tobacco use Status Tobacco use date assessed 10/14/23 10/14/23 13:41 Patient Tobacco Use Status Current everyday Tobacco 10/14/23 13:41 Tobacco use type Cigarette 10/14/23 13:41 e-Cigarette/Vaping Use Never Used 10/14/23 13:41 PHQ-9: PHQ-9 Score PHQ-9: Total score 0 10/14/23 13:41 Thrive Assessment: Date of Thrive Assessment Date Thrive assessed 10/14/23 10/14/23 13:41 Currently or been in a relationship where the following occur: no concerns reported Eyes General: appearance normal, both eyes and all related structures Eyelids: Yes eyelids normal Conjunctivae: conjunctivae normal Neck Neck: Yes normal visual inspection and Yes supple Resp Effort & Inspection: normal respiratory effort Auscultation: clear to auscultation bilaterally Cardio Jugular venous distension: no JVD Rate: regular rate Rhythm: regular rhythm Heart sounds: S1 normal heart sound present and S2 normal heart sound present Extrem General: Yes full ROM Assessment and Plan Assessment & Plan (1) Uncontrolled hypertension: Code(s): I10 - Essential (primary) hypertension Plan: Increase losartan to 100 mg. Blood pressure goal is equal or less than 130/80. Recheck blood pressure with nurse navigator in 3 weeks. (2) Nephrolithiasis: Code(s): N20.0 - Calculus of kidney Plan: Referred to urology. Advised to drink copious amount of water. (3) Autoimmune thyroiditis: Code(s): E06.3 - Autoimmune thyroiditis Plan: Continue levothyroxine. (4) Pernicious anemia: Code(s): D51.0 - Vitamin B12 deficiency anemia due to intrinsic factor deficiency Plan: Continue vitamin B12 and folic acid. (5) Hypovitaminosis D: Code(s): E55.9 - Vitamin D deficiency, unspecified Plan: Restart vitamin-D supplements. Orders: Orders Vitamin D 25-OH Total 4 Months E55.9 - Vitamin D deficiency, unspecified Thyroid Stimulating Hormone 4 Months E06.3 - Autoimmune thyroiditis XR finger LT min 2V Today M79.645 - Pain in left finger(s) Vitamin B12 and Folate 4 Months E53.8 - Deficiency of other specified B group vitamins Comprehensive [place]. Panel Fast 4 Months I10 - Essential (primary) hypertension Referrals Urology Referral N20.0 - Calculus of kidney Medications: New losartan 100 mg PO DAILY 90 days 90 tabs 1RF I10 - Essential (primary) hypertension Discontinued losartan Discontinued Reason: No Longer Medically Relevant 50 mg PO DAILY 90 days 90 tabs 1RF Coding Level of Care Code Est Pt Level 4 (91422) Diagnoses Uncontrolled hypertension I10 Nephrolithiasis N20.0 Autoimmune thyroiditis E06.3 Pernicious anemia D51.0 Hypovitaminosis D E55.9 Additional Codes SAMI-7 Assessment Billing - SAMI-7 Assessment Tool: SAMI-7 Assessment 74134 ([id number]) Time Spent (min) 23
[2023-10-14 13:58] VITALS: BP 160/98
== END 2023-10-14 13:57 | disposition home or self-care (01) ==
PROVIDERS: PCP Internal Medicine; Visit Provider Internal Medicine
DX: I10 Essential (primary) hypertension (principal); N20.0 Calculus of kidney; E06.3 Autoimmune thyroiditis; D51.0 Vitamin B12 deficiency anemia due to intrinsic factor deficiency; E55.9 Vitamin D deficiency, unspecified
CPT/HCPCS: 99214

== ENCOUNTER 2023-10-16 11:45 | Outpatient (REF) | payer OTHER, SELFPAY ==
--- NOTE | ~2023-10-16 | XR_ITS ---
EXAMINATION: XR FINGER, LEFT CLINICAL INFORMATION: Pain in first finger on the left COMPARISON: None available. TECHNIQUE: Three views of the left first finger. FINDINGS: There is fracture subluxation of the base of the middle phalanx of fourth finger seen on the lateral view only, along the posterior aspect of the joint XR/XR finger LT min 2V IMPRESSION: Fracture through the base of the metaphysis of the middle phalanx of fourth finger
== END 2023-10-16 11:46 | disposition home or self-care (01) ==
LOC: HO.XRAY 11:45
PROVIDERS: PCP Internal Medicine; Visit Provider Internal Medicine
DX: M79.645 Pain in left finger(s) (principal)
CPT/HCPCS: 73140

== ENCOUNTER 2023-11-04 10:45 | Outpatient (AMB) | payer OTHER, SELFPAY ==
[2023-11-04 11:07] VITALS: BMI 25.6
--- NOTE | 2023-11-04 11:07 | MHC.OFFVIS ---
Intake Vital Signs 11/04/23 11:07 Height 5 ft 2 in Weight 140 lb BMI 25.6 Intake Visit Reasons: N/P left hand RF injury s/p falling in feb Intake Note: Indu 43 yr old left hand dominant female presents today for her left hand ring finger injury, States she fell down while in [place] She explains it was snowing and she [place] and fell approx in [place] States she do not seek medical tretamnet. She later was seen with her PCP who ordered Xrays and was told she has a fracture. Currently she is not able to bend her finger or make a fist. Denies numbness or tingling. Allergies varenicline [From Chantix] Allergy (Intermediate, Verified 11/04/23 11:12) behavioral health barium sulfate Adverse Reaction (Intermediate, Verified 11/04/23 11:12) behavioral changes HPI N/P left hand RF injury s/p falling in [place] HPI Details Indu is a 43 year old right hand dominant woman who presents with complaints of left ring finger stiffness & pain. She reports a left ring finger fracture, from a fall while in [place] in ~08/2023. She denies seeking treatment after her fall. She complains of pain & stiffness primarily in her right ring finger. She says she cannot bend her ring finger to make a fist. She denies any numbness or tingling. [facility] Medical History GERD (gastroesophageal reflux disease) Hypovitaminosis D Autoimmune thyroiditis Pernicious anemia Surgical History History of tubal ligation Family History Father Hypertension Mother Diabetes Hypertension Hyperlipidemia Hypothyroidism Maternal Grandmother Breast cancer Maternal Aunt Diabetes Social History Housing: House Alcohol intake: current Alcohol intake frequency: holidays/special occasions only Alcohol type: beer Patient Tobacco Use Status: Current everyday Tobacco user Tobacco use type: Cigarette Cigarettes Per Day: 5 e-Cigarette/Vaping Use: Never Used Second Hand Smoke Exposure: No service: No Current occupational status: unemployed Cognitive needs: No Hearing needs: No Vision needs: No Review of Systems Const All systems reviewed & are unremarkable except as noted in HPI and below Physical Exam Vital Signs: BMI result Body Mass Index 25.6 Const General: cooperative, healthy appearing and no acute distress Orientation/consciousness: patient oriented x3 HEENT Head: Yes normocephalic and Yes atraumatic Eyes EOM: EOMs intact bilaterally Resp Effort & Inspection: normal respiratory effort and able to speak in complete sentences Cardio Jugular venous distension: no JVD Skin General skin exam: turgor normal Rashes: no rashes Neuro General: patient oriented x3 Extrem Other: Evaluation of Left Upper Extremity: The patient is alert, oriented, and in no acute distress Neuro: Median, Ulnar, Radial nerves motor and sensory intact and sensation is normal to the tips of all digits Vascular: Cap refill brisk ROM: She has ~40 degrees flexion of the ring finger PIP joint, limited by pain Full flexion at the MCP joint. She has full extension of all digits, and can bring her index, middle, and small fingers closed to a fist Skin: No lacerations or abrasions. General: No Ecchymosis. No Erythema or evidence of infection. Radiographs: 3 views of the left hand from 10/16/23 were reviewed by me today in clinic. They show a fracture at the base of the left ring finger middle phalanx involving the volar base. There is also dorsal subluxation/dislocation of the PIP joint. She does appear on the lateral to have a significant loss of perhaps the volar half of the articular surface of the base of the middle phalanx. Psych Appearance: grossly normal Affect: normal affect Attitude: cooperative Assessment & Plan Assessment & Plan (1) Closed fracture of middle phalanx of left ring finger with malunion: Code(s): S62.625P - Displaced fracture of middle phalanx of left ring finger, subsequent encounter for fracture with malunion (2) Finger fracture, left: Code(s): S62.609A - Fracture of unspecified phalanx of unspecified finger, initial encounter for closed fracture Plan Assessment & Plan: 1. Left ring finger fracture of the volar base and articular surface of the middle phalanx with dorsal dislocation/subluxation of the joint. DOI: ~08/2023 This occurred following a fall in snow, and this is the 1st time we have seen the patient for this injury. I educated her about this condition I discussed operative and non-operative treatment options Possible treatment options include conservative management or possible closed manipulation, followed by placement of a dynamic external fixator. I might consider a closed manipulation under anesthesia to see whether or not the PIP joint can be reduced. This may then affect whether or not we decided to proceed with any further treatment. A dynamic external fixator is only possibly useful if the joint can be reduced. One concern is as her injury is ~2 months old, she may have significant scarring about the PIP joint with would impede a Closed reduction of the PIP joint dislocation. I ordered a CT scan, without contrast, of her left ring finger to better evaluate the fracture for a possible mal-union vs non-union of the volar base She will work on ROM exercises at home She will follow up when completed for review and to discuss treatment options, This should be a 30 minute appointment Scribed for Amena Barrera MD by Alex Justice, emergency medical service coordinator, on 11/04/23 at 11:40 AM, EST. Orders: Orders CT hand LT wo IV con Today S62.609A - Fracture of unspecified phalanx of unspecified finger, initial encounter for closed fracture, S62.625P - Displaced fracture of middle phalanx of left ring finger, subsequent encounter for fracture with malunion Coding Level of Care Code New Pt Level 4 (08755) Diagnoses Closed fracture of middle phalanx of left ring finger with malunion S62.625P Finger fracture, left S62.609A
== END 2023-11-04 11:46 | disposition home or self-care (01) ==
PROVIDERS: PCP Internal Medicine; Visit Provider Orthopaedic Surgery
DX: S62.625P Displaced fracture of middle phalanx of left ring finger, subsequent encounter for fracture with malunion (principal); S62.605A Fracture of unspecified phalanx of left ring finger, initial encounter for closed fracture
CPT/HCPCS: 99203

== ENCOUNTER → 2023-11-04 10:45 | Outpatient (BNVA) | payer OTHER, SELFPAY | PROVIDERS: PCP Internal Medicine; Visit Provider Orthopaedic Surgery | DX: S62.625P Displaced fracture of middle phalanx of left ring finger, subsequent encounter for fracture with malunion (principal) | CPT/HCPCS: 99202 ==

== ENCOUNTER 2024-02-16 14:52 | Outpatient (AMB) | payer OTHER, SELFPAY ==
[2024-02-16 14:55] VITALS: BP 160/90; BMI 25.1
--- NOTE | 2024-02-16 14:55 | A.OFFPC_ITS ---
Vital Signs 02/16/24 14:55 02/16/24 15:47 Height 5 ft 2 in Weight 137 lb BMI 25.1 BP 160/90 H 160/90 H Blood Pressure Location Lt brachial Lt brachial Position Sitting Sitting Intake Visit Reasons: bp Intake Note: Patient here for a follow up BP Social Group Worker Required: No Accompanied by: Self / Same As Patient Allergies varenicline [From Chantix] Allergy (Intermediate, Verified 02/16/24 15:04) behavioral health barium sulfate Adverse Reaction (Intermediate, Verified 02/16/24 15:04) behavioral changes Medication List - Last Reconciled 02/16/24 by Brissa Peters MD cholecalciferol (vitamin D3) 25 mcg PO DAILY 90 days cyanocobalamin (vitamin B-12) 1,000 mcg PO DAILY 90 days folic acid 1 mg PO DAILY 90 days levothyroxine 150 mcg PO DAILY 90 days losartan 100 mg PO DAILY 90 days omeprazole 20 mg PO QAM 90 days Tobacco use date assessed: 10/14/23 Dental Screening Dental Screen Date: 10/14/23 HPI HPI Comments History of Present Illness Details This is a 43-year-old female with essential hypertension, autoimmune thyroiditis, GERD and low vitamin-D that comes today for follow-up on her conditions. Blood pressure elevated and will be recheck in 3 weeks by nurse navigator. Last TSH was normal and this will be repeated as well as vitamin-D levels which she admits being compliant with the supplements. GERD has been stable with PPIs. Denies any chest pain or shortness on breath. No headaches. [facility] Medical History GERD (gastroesophageal reflux disease) Hypovitaminosis D Autoimmune thyroiditis Pernicious anemia Surgical History History of tubal ligation Family History Father Hypertension Mother Diabetes Hypertension Hyperlipidemia Hypothyroidism Maternal Grandmother Breast cancer Maternal Aunt Diabetes Social History Housing: House Alcohol intake: current Alcohol intake frequency: holidays/special occasions only Alcohol type: beer Patient Tobacco Use Status: Current everyday Tobacco user Tobacco use type: Cigarette Cigarettes Per Day: 5 e-Cigarette/Vaping Use: Never Used Second Hand Smoke Exposure: No service: No Current occupational status: unemployed Cognitive needs: No Hearing needs: No Vision needs: No Questionnaire PHQ-9 Over the last 2 weeks, how often have you been bothered by any of the following problems? 1. Little interest or pleasure in doing things: not at all 2. Feeling down, depressed, or hopeless: not at all 3. Trouble falling or staying asleep, or sleeping too much: not at all 4. Feeling tired or having little energy: not at all 5. Poor appetite or overeating: not at all 6. Feeling bad about yourself - or that you are a failure or have let yourself or your family down: not at all 7. Trouble concentrating on things, such as reading the newspaper or watching television: not at all 8. Moving or speaking so slowly that other people could have noticed. Or the opposite - being so fidgety or restless that you have been moving around a lot more than usual: not at all 9. Thoughts that you would be better off or of hurting yourself in some way: not at all Total score: 0 Depression Screening Interpretation: Negative Depression Screening Done: Yes 27656 - PHQ-9 Billing: Yes Source: Developed by Drs. Andrew Toth, Kayla Junior, Ralph Matt and colleagues, with an educational husam from [employer]. Thrive Questionnaire Date Thrive assessed: 02/16/24 I am a: Patient What is your living situation today?: I have a steady place to live Within the past 12 months, did the food you bought not last and you didn't have the money to get more?: Never true Within the past 12 months, did you worry whether your food would run out before you got money to buy more?: Never true Do you have trouble paying for medicines?: No Do you have trouble getting transportation to medical appointments?: No Do you have trouble paying your heating and electricity bill?: No Do you have trouble taking care of your child, family member or friend?: No Do you have trouble with day-to-day activities such as bathing, preparing meals, shopping, managing finances, etc.?: No Are you currently unemployed and looking for a job?: No Are you interested in more education?: No Please select the resources that you would like help with: None Currently or been in a relationship where the following occur: No concerns reported THRIVE Score: 0 AUDIT C Alcohol Use Questionnaire (AUDIT-C) 1. How often do you have a drink containing alcohol?: Monthly or less 2. How many drinks containing alcohol do you have on a typical day when you are drinking?: 1 or 2 3. How often do you have six or more drinks on one occasion?: Never Total Score: 1 Score Reviewed/Action Taken: No SAMI-7 AMB Questionnaire SAMI-7 Date SAMI - 7 assessed: 10/14/23 Source: Developed by Drs. Andrew Toth, Kayla Junior, Ralph Matt and colleagues, with an educational husam from [employer]. Review of Systems Const All systems reviewed & are unremarkable except as noted in HPI and below Card Denies chest pain at rest, Denies chest pain with activity, Denies edema, Denies irregular heart rhythm, Denies claudication, Denies dyspnea, Denies dyspnea on exertion, Denies orthopnea, Denies paroxysmal nocturnal dyspnea and Denies slow heart rate Resp Denies cough, Denies dyspnea and Denies dyspnea on exertion GI Denies abdominal pain, Denies change in bowel habits, Denies excessive flatus, Denies nausea and Denies vomiting Physical exam (Primary Care) Vital Signs: Last Vital Signs BP 160/90 H 02/16/24 14:55 BMI result Body Mass Index 25.1 Tobacco/Smoking Status: Tobacco use Status Tobacco use date assessed 10/14/23 02/16/24 15:02 Patient Tobacco Use Status Current everyday Tobacco 02/16/24 15:02 Tobacco use type Cigarette 02/16/24 15:02 e-Cigarette/Vaping Use Never Used 02/16/24 15:02 Are you ready to quit: No Tobacco cessation counseling provided: Yes Items discussed: [employer] Relapse Prevention: discussed the importance of a supportive environment, discussed negative mood or depression after quitting, weight gain after smoking is common and discussed dietary, exercise and/or lifestyle changes Number of minutes spent counselin CPT code: 21570 - 4-10 Minutes PHQ-9: PHQ-9 Score PHQ-9: Total score 0 02/16/24 15:07 Depression Screening Interpretation: Negative Thrive Assessment: Date of Thrive Assessment Date Thrive assessed 02/16/24 02/16/24 15:02 Currently or been in a relationship where the following occur: No concerns reported Resp Effort & Inspection: normal respiratory effort Auscultation: clear to auscultation bilaterally Cardio Jugular venous distension: no JVD Rate: regular rate Rhythm: regular rhythm Heart sounds: S1 normal heart sound present and S2 normal heart sound present Extrem General: Yes full ROM Assessment and Plan Assessment & Plan (1) Essential hypertension: Code(s): I10 - Essential (primary) hypertension Plan: Continue losartan. Blood pressure goal is equal or less than 130/80. (2) Autoimmune thyroiditis: Code(s): E06.3 - Autoimmune thyroiditis Plan: Continue levothyroxine. Monitor TSH. (3) GERD (gastroesophageal reflux disease): Code(s): K21.9 - Gastro-esophageal reflux disease without esophagitis Qualifiers: Esophagitis presence: esophagitis presence not specified Qualified Code(s): K21.9 - Gastro-esophageal reflux disease without esophagitis Plan: Continue PPIs. (4) Hypovitaminosis D: Code(s): E55.9 - Vitamin D deficiency, unspecified Plan: Continue vitamin-D supplements. Orders: Orders Vitamin B12 and Folate Today E53.8 - Deficiency of other specified B group vitamins Vitamin D 25-OH Total Today E55.9 - Vitamin D deficiency, unspecified Thyroid Stimulating Hormone Today E06.3 - Autoimmune thyroiditis Coding Level of Care Code Est Pt Level 4 (93414) Complex EM visit Add On G2211 Diagnoses Essential hypertension I10 Autoimmune thyroiditis E06.3 Gastroesophageal reflux disease, unspecified whether esophagitis present K21.9 Esophagitis presence: esophagitis presence not specified Hypovitaminosis D E55.9 Additional Codes Vital Signs *Quality* - CPT code: 67905 - 4-10 Minutes ([id number]) Time Spent (min) 23
[2024-02-16 15:47] VITALS: BP 160/90
== END 2024-02-16 15:14 | disposition home or self-care (01) ==
PROVIDERS: PCP Internal Medicine; Visit Provider Internal Medicine
DX: I10 Essential (primary) hypertension (principal); E06.3 Autoimmune thyroiditis; K21.9 Gastro-esophageal reflux disease without esophagitis; E55.9 Vitamin D deficiency, unspecified
CPT/HCPCS: 99214; 99406; G2211

== ENCOUNTER 2024-06-09 14:48 | Outpatient (REF) | payer OTHER, SELFPAY ==
[2024-06-09 16:57] LABS: Alanine Aminotransferase 10 U/L (0-31); Albumin Level 4.2 g/dL (3.5-5.0); Alkaline Phosphatase 79 U/L (39-117); Anion Gap 12 (12-20); Aspartate Amino Transferase 16 U/L (5-31); Bilirubin Total 0.3 mg/dL (0.0-1.0); Blood Urea Nitrogen 11 mg/dL (9-16); Carbon Dioxide 24 mmol/L (22-29); Chloride 107 mmol/L (96-108); Estimated Glomerular Filt Rate > 60; Glucose Fasting 97 mg/dL (60-99); Potassium 3.6 mmol/L (3.3-5.1); Sodium 139 mmol/L (135-145)
[2024-06-09 17:16] LABS: Thyroid Stimulating Hormone 1.57 uIU/mL (0.32-4.0); Vitamin D 25-OH Total 17.7 ng/mL (>30)
[2024-06-09 17:18] LABS: Vitamin B12 325 pg/mL (200-900)
== END 2024-06-09 14:49 | disposition home or self-care (01) ==
LOC: HO.LAB 14:48
PROVIDERS: PCP Internal Medicine; Visit Provider Internal Medicine
DX: Z00.00 Encounter for general adult medical examination without abnormal findings (principal); Z23 Encounter for immunization; E06.3 Autoimmune thyroiditis; E55.9 Vitamin D deficiency, unspecified; E53.8 Deficiency of other specified B group vitamins; I10 Essential (primary) hypertension
CPT/HCPCS: 36415; 80053; 82306; 82607; 82746; 84443; 90471; 90656; 99396

== ENCOUNTER 2024-06-09 14:48 | Outpatient (AMB) | payer OTHER, SELFPAY ==
--- NOTE | 2024-06-09 14:54 | A.OFFPC_ITS ---
Vital Signs 06/09/24 14:55 06/09/24 17:31 Height 5 ft 2 in Weight 140 lb BMI 25.6 BP 192/100 H 190/90 H Blood Pressure Location Lt brachial Lt brachial Position Sitting Sitting Intake Visit Reasons: Annual Exam Intake Note: Patient here for a physical exam Supervisor Stitching Department Required: No Accompanied by: Self / Same As Patient Allergies varenicline [From Chantix] Allergy (Intermediate, Verified 06/09/24 15:05) behavioral health barium sulfate Adverse Reaction (Intermediate, Verified 06/09/24 15:05) behavioral changes Medication List - Last Reconciled 06/09/24 by Brissa Peters MD cholecalciferol (vitamin D3) 25 mcg PO DAILY 90 days cyanocobalamin (vitamin B-12) 1,000 mcg PO DAILY 90 days folic acid 1 mg PO DAILY 90 days levothyroxine 150 mcg PO DAILY 90 days losartan 100 mg PO DAILY 90 days omeprazole 20 mg PO QAM 90 days Tobacco use date assessed: 10/14/23 Dental Screening Dental Screen Date: 06/09/24 Did you have a dental visit in the last 12 months?: No Did you have a dental problem in the last 6 months where you did not have access to dental care?: No Was dental information given to patient?: Patient has dentist HPI HPI Comments History of Present Illness Details This is a 44 year old female that comes for her physical exam. She has high blood pressure and is compliant with medications. I will add Amlodipine. BP will be recheck in 3 weeks with nurse navigator. Mammogram will be order. Will be refer for colonoscopy and PAp smear. No chest pain or shortness of breath. [facility] Medical History (Updated 06/09/24 @ 15:10 by Brissa Peters MD) GERD (gastroesophageal reflux disease) Hypovitaminosis D Autoimmune thyroiditis Pernicious anemia Surgical History History of tubal ligation Family History Father Hypertension Mother Diabetes Hypertension Hyperlipidemia Hypothyroidism Maternal Grandmother Breast cancer Maternal Aunt Diabetes Social History Housing: House Alcohol intake: current Alcohol intake frequency: holidays/special occasions only Alcohol type: beer Patient Tobacco Use Status: Current everyday Tobacco user Tobacco use type: Cigarette Cigarettes Per Day: 5 e-Cigarette/Vaping Use: Never Used Second Hand Smoke Exposure: No service: No Current occupational status: unemployed Cognitive needs: No Hearing needs: No Vision needs: No Questionnaire Thrive Questionnaire Date Thrive assessed: 02/16/24 SAMI-7 AMB Questionnaire SAMI-7 Date SAMI - 7 assessed: 10/14/23 Source: Developed by Drs. Andrew Toth, Kayla Junior, Ralph Matt and colleagues, with an educational husam from [employer]. Review of Systems Const All systems reviewed & are unremarkable except as noted in HPI and below Card Denies chest pain at rest, Denies chest pain with activity, Denies edema, Denies irregular heart rhythm, Denies claudication, Denies dyspnea, Denies dyspnea on exertion, Denies orthopnea, Denies paroxysmal nocturnal dyspnea and Denies slow heart rate Resp Denies cough, Denies dyspnea and Denies dyspnea on exertion GI Denies abdominal pain, Denies change in bowel habits, Denies excessive flatus, Denies nausea and Denies vomiting Neuro Denies lack of coordination Physical exam (Primary Care) Vital Signs: Last Vital Signs BP 192/100 H 06/09/24 14:55 BMI result Body Mass Index 25.6 Tobacco/Smoking Status: Tobacco use Status Tobacco use date assessed 10/14/23 06/09/24 14:59 Patient Tobacco Use Status Current everyday Tobacco 06/09/24 14:59 Tobacco use type Cigarette 06/09/24 14:59 e-Cigarette/Vaping Use Never Used 06/09/24 14:59 Are you ready to quit: No Tobacco cessation counseling provided: Yes Items discussed: Nicotine replacement and QuitWorks Relapse Prevention: discussed the importance of a supportive environment, discussed extending NRT, discussed negative mood or depression after quitting, weight gain after smoking is common and discussed dietary, exercise and/or lifestyle changes Number of minutes spent counselin CPT code: 06872 - 4-10 Minutes Thrive Assessment: Date of Thrive Assessment Date Thrive assessed 02/16/24 06/09/24 14:59 HENMT Head: Yes normal to inspection, Yes normocephalic and Yes atraumatic Ears: external ears normal Eyes General: appearance normal, both eyes and all related structures Eyelids: Yes eyelids normal Conjunctivae: conjunctivae normal Resp Effort & Inspection: normal respiratory effort Auscultation: clear to auscultation bilaterally Cardio Jugular venous distension: no JVD Rate: regular rate Rhythm: regular rhythm Heart sounds: S1 normal heart sound present and S2 normal heart sound present GI Inspection: Yes normal to inspection Palpation (GI): Soft to palpation and nontender Auscultation: normal bowel sounds Skin General skin exam: no rashes or lesions noted Neuro General: no focal motor deficits Extrem General: Yes full ROM Psych Appearance: grossly normal Office Procedures Flu Questionnaire Does the patient have a severe egg allergy?: No Does the patient have severe life threatening allergies?: No Does the patient have a fever or illness today?: No Has the patient ever had Guillain-Burbank Syndrome?: No Has the patient ever had any past reaction to a flu shot?: No Immunizations Fluarix Triv 0820-3905 (PF) 45 mcg (15 mcg x 3)/0.5 mL IM syringe Performing Provider: Brissa Peters MD [facility] Administered by: VICKY Crooks on 06/09/24 15:17 Dose Route Admin Location Dispensed Lot Number Expiration Date NDC 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 Eligible 06/09/24 Private Coding Level of Care Code Est Pt Prev Care 40-64y(53058) Diagnoses Physical exam Z00.00 Additional Codes Vital Signs *Quality* - CPT code: 95952 - 4-10 Minutes ([id number]) Time Spent (min) 34 Assessment & Plan Assessment & Plan (1) Physical exam: Code(s): Z00.00 - Encounter for general adult medical examination without abnormal findings Category: Medical Plan: Repeat in a year. Orders: Orders Thyroid Stimulating Hormone Today E06.3 - Autoimmune thyroiditis Influenza [id number] Immunization Today Z23 - Encounter for immunization Vitamin D 25-OH Total Today E55.9 - Vitamin D deficiency, unspecified Vitamin B12 and Folate Today E53.8 - Deficiency of other specified B group v itamins MM tomosynthesis screening BI Today Z12.31 - Encounter for screening mammogram for malignant neoplasm of breast Referrals Open Access Screening Colonoscopy Referral Z12.12 - Encounter for screening for malignant neoplasm of rectum [employer]ATING [employer] OPERATOR Referral Z01.419 - Encounter for gynecological examination (general) (routine) without abnormal findings Medications: New amlodipine 5 mg PO DAILY 90 tabs 1RF 90 days
[2024-06-09 14:55] VITALS: BP 192/100; BMI 25.6
[2024-06-09 17:31] VITALS: BP 190/90
== END 2024-06-09 15:20 | disposition home or self-care (01) ==
PROVIDERS: PCP Internal Medicine; Visit Provider Internal Medicine
DX: Z00.00 Encounter for general adult medical examination without abnormal findings (principal); Z23 Encounter for immunization

== ENCOUNTER 2024-07-12 12:15 | Outpatient (REF) | payer OTHER, SELFPAY | END 2024-07-12 12:16 | disposition home or self-care (01) | LOC: HO.MAMMO 12:15 | PROVIDERS: PCP Internal Medicine; Visit Provider Internal Medicine | DX: Z12.31 Encounter for screening mammogram for malignant neoplasm of breast (principal) | CPT/HCPCS: 77063; 77067 ==

== ENCOUNTER → 2024-07-12 12:30 | Outpatient (BNV) | payer OTHER, SELFPAY | PROVIDERS: PCP Internal Medicine; Visit Provider Internal Medicine | DX: Z12.31 Encounter for screening mammogram for malignant neoplasm of breast (principal) | CPT/HCPCS: 77063; 77067 ==

== ENCOUNTER 2024-10-12 13:43 | Outpatient (AMB) | payer OTHER, SELFPAY ==
--- NOTE | 2024-10-12 14:02 | MHC.PC.OV ---
Vital Signs 10/12/24 14:04 Height 5 ft 2 in Weight 138 lb BMI 25.2 BP 152/90 H Blood Pressure Location Lt brachial Position Sitting Intake Visit Reasons: bp Intake Note: Patient here for a follow up BP Card Table Attendant Required: No Accompanied by: Self / Same As Patient Allergies varenicline [From Chantix] Allergy (Intermediate, Verified 10/12/24 14:17) behavioral health barium sulfate Adverse Reaction (Intermediate, Verified 10/12/24 14:17) behavioral changes Medication List - Last Reconciled 10/12/24 by Brissa Peters MD amlodipine 5 mg PO DAILY 90 days cholecalciferol (vitamin D3) 25 mcg PO DAILY 90 days levothyroxine 150 mcg PO DAILY 90 days losartan 100 mg PO DAILY 90 days omeprazole 20 mg PO QAM 90 days Tobacco use date assessed: 10/12/24 Dental Screening Dental Screen Date: 10/12/24 Did you have a dental visit in the last 12 months?: No Did you have a dental problem in the last 6 months where you did not have access to dental care?: No Was dental information given to patient?: Patient has dentist HPI HPI Comments History of Present Illness Details The patient is a 44-year-old female presenting with elevated blood pressure and associated peripheral edema. Recent measurements indicate improvement, with blood pressure currently at 152/90 mmHg, down from previous levels of 180/100 mmHg and 190/90 mmHg. However, the therapeutic target is less than 130/80 mmHg. The use of Amlodipine 5 mg daily has been noted to cause leg swelling, aligning with reports of peripheral edema. The patient's treatment includes evaluation of vitamin and thyroid levels, addressing existing deficiencies in vitamin D and B12, and hypothyroidism managed with Levothyroxine. Her GERD is controlled with Omeprazole, and she denies any chest pain or respiratory distress. Anemia related to vitamin B12 deficiency is monitored due to underlying pernicious anemia. [facility] Medical History GERD (gastroesophageal reflux disease) Hypovitaminosis D Autoimmune thyroiditis Pernicious anemia Surgical History History of tubal ligation Family History Father Hypertension Mother Diabetes Hypertension Hyperlipidemia Hypothyroidism Maternal Grandmother Breast cancer Maternal Aunt Diabetes Social History Housing: House Alcohol intake: current Alcohol intake frequency: holidays/special occasions only Alcohol type: beer Patient Tobacco Use Status: Current everyday Tobacco user Tobacco use type: Cigarette Cigarettes Per Day: 5 e-Cigarette/Vaping Use: Never Used Second Hand Smoke Exposure: No service: No Current occupational status: unemployed Cognitive needs: No Hearing needs: No Vision needs: No Questionnaire PHQ-9 Over the last 2 weeks, how often have you been bothered by any of the following problems? 1. Little interest or pleasure in doing things: not at all 2. Feeling down, depressed, or hopeless: not at all 3. Trouble falling or staying asleep, or sleeping too much: not at all 4. Feeling tired or having little energy: not at all 5. Poor appetite or overeating: not at all 6. Feeling bad about yourself - or that you are a failure or have let yourself or your family down: not at all 7. Trouble concentrating on things, such as reading the newspaper or watching television: not at all 8. Moving or speaking so slowly that other people could have noticed. Or the opposite - being so fidgety or restless that you have been moving around a lot more than usual: not at all 9. Thoughts that you would be better off or of hurting yourself in some way: not at all Total score: 0 Depression Screening Interpretation: Negative Depression Screening Done: Yes 73117 - PHQ-9 Billing: Yes Source: Developed by Drs. Andrew Toth, Kayla Junior, Ralph Matt and colleagues, with an educational husam from [employer]. Thrive Questionnaire Date Thrive assessed: 10/12/24 I am a: Patient What is your living situation today?: I have a steady place to live Within the past 12 months, did the food you bought not last and you didn't have the money to get more?: Never true Within the past 12 months, did you worry whether your food would run out before you got money to buy more?: Never true Do you have trouble paying for medicines?: No Do you have trouble getting transportation to medical appointments?: No Do you have trouble paying your heating and electricity bill?: No Do you have trouble taking care of your child, family member or friend?: No Do you have trouble with day-to-day activities such as bathing, preparing meals, shopping, managing finances, etc.?: No Are you currently unemployed and looking for a job?: No Are you interested in more education?: No Please select the resources that you would like help with: None Currently or been in a relationship where the following occur: No concerns reported THRIVE Score: 0 AUDIT C Alcohol Use Questionnaire (AUDIT-C) 1. How often do you have a drink containing alcohol?: Monthly or less 2. How many drinks containing alcohol do you have on a typical day when you are drinking?: 1 or 2 3. How often do you have six or more drinks on one occasion?: Never Total Score: 1 Score Reviewed/Action Taken: No SAMI-7 AMB Questionnaire SAMI-7 Date SAMI - 7 assessed: 10/12/24 Feeling nervous, anxious, or on edge: 0 = Not at all Not being able to stop or control worryin = Not at all Worrying too much about different things: 0 = Not at all Trouble relaxin = Not at all Being so restless that it is hard to sit still: 0 = Not at all Becoming easily annoyed or irritable: 0 = Not at all Feeling afraid as if something awful might happen: 0 = Not at all Total SAMI-7 score (0-4 normal; 5-9 mild; 10-14 moderate; 15-21 severe): 0 Source: Developed by Drs. Andrew Toth, Kayla Junior, Ralph Matt and colleagues, with an educational husam from [employer]. SAMI-7 Assessment Billing SAMI-7 Assessment Tool: SAMI-7 Assessment 43590 Review of Systems Const All systems reviewed & are unremarkable except as noted in HPI and below Card Denies chest pain at rest, Denies chest pain with activity, Denies edema, Denies irregular heart rhythm, Denies claudication, Denies dyspnea, Denies dyspnea on exertion, Denies orthopnea, Denies paroxysmal nocturnal dyspnea and Denies slow heart rate Resp Denies cough, Denies dyspnea and Denies dyspnea on exertion GI Denies abdominal pain, Denies change in bowel habits, Denies excessive flatus, Denies nausea and Denies vomiting Denies urinary incontinence, Denies urinary hesitancy and Denies urinary urgency Musc Denies atrophy, Denies deformity and Denies limited range of motion Skin/Breast Denies bleeding lesions, Denies changing lesions and Denies rash Physical exam (Primary Care) Vital Signs: Last Vital Signs BP 152/90 H 10/12/24 14:04 BMI result Body Mass Index 25.2 Tobacco/Smoking Status: Tobacco use Status Tobacco use date assessed 10/12/24 10/12/24 14:10 Patient Tobacco Use Status Current everyday Tobacco 10/12/24 14:10 Tobacco use type Cigarette 10/12/24 14:10 e-Cigarette/Vaping Use Never Used 10/12/24 14:10 PHQ-9: PHQ-9 Score PHQ-9: Total score 0 10/12/24 14:18 Depression Screening Interpretation: Negative Thrive Assessment: Date of Thrive Assessment Date Thrive assessed 10/12/24 10/12/24 14:10 Currently or been in a relationship where the following occur: No concerns reported Resp Effort & Inspection: normal respiratory effort Auscultation: clear to auscultation bilaterally Cardio Jugular venous distension: no JVD Rate: regular rate Rhythm: regular rhythm Heart sounds: S1 normal heart sound present and S2 normal heart sound present Extrem General: Yes full ROM Coding Level of Care Code Est Pt Level 4 (45618) Complex EM visit Add On G2211 Diagnoses Essential hypertension I10 Autoimmune thyroiditis E06.3 Pernicious anemia D51.0 Gastroesophageal reflux disease, unspecified whether esophagitis present K21.9 Esophagitis presence: esophagitis presence not specified Hypovitaminosis D E55.9 Additional Codes SAMI-7 Assessment Billing - SAMI-7 Assessment Tool: SAMI-7 Assessment 58520 ([id number]) PHQ-9 - 41814 - PHQ-9 Billing: Yes ([id number]) Time Spent (min) 23 Assessment & Plan Assessment & Plan (1) Essential hypertension: Code(s): I10 - Essential (primary) hypertension Category: Medical (2) Autoimmune thyroiditis: Code(s): E06.3 - Autoimmune thyroiditis Category: Medical (3) Pernicious anemia: Code(s): D51.0 - Vitamin B12 deficiency anemia due to intrinsic factor deficiency Category: Medical (4) GERD (gastroesophageal reflux disease): Code(s): K21.9 - Gastro-esophageal reflux disease without esophagitis Category: Medical Qualifiers: Esophagitis presence: esophagitis presence not specified Qualified Code(s): K21.9 - Gastro-esophageal reflux disease without esophagitis (5) Hypovitaminosis D: Code(s): E55.9 - Vitamin D deficiency, unspecified Category: Medical Plan We will address the peripheral edema, likely caused by Amlodipine, by transitioning to an alternative antihypertensive. Monitoring and managing hypertension remains a priority, with a follow-up in four months to ensure targets are met. Thyroid function, vitamin D, and levels will be assessed, considering the patient's history of pernicious anemia and related deficiencies. GERD management with Omeprazole will continue, and therapy will be adapted based on subsequent evaluations and response to new antihypertensive therapy. Patient was informed and verbally consented to the use of an ambient scribe for clinic note documentation during this visit. During the visit, I discussed the need to transition away from Amlodipine due to its association with peripheral edema, proposing an alternative medication. We reviewed the importance of controlling blood pressure and maintaining it below 130/80 mmHg. We emphasized the significance of monitoring vitamin D, B12, and thyroid function, given the patient's previous deficiencies and pernicious anemia. I highlighted that Omeprazole is effective for her GERD, and the patient was informed about the follow-up plan in four months. The rationale, benefits, and potential side effects of the proposed management strategies were reviewed, and the patient agreed to the changes. Orders: Orders Vitamin D 25-OH Total Today E55.9 - Vitamin D deficiency, unspecified Thyroid Stimulating Hormone Today E06.3 - Autoimmune thyroiditis Vitamin B12 and Folate Today E53.8 - Deficiency of other specified B group vitamins Medications: New verapamil ER 120 mg PO DAILY 90 caps 1RF 90 days Discontinued amlodipine Discontinued Reason: Patient Completed Course 5 mg PO DAILY 90 days 90 tabs 1RF Patient Instructions: - Monitor leg swelling and report any increase in symptoms. - Adhere to the new antihypertensive regimen as prescribed. - Schedule the recommended lab tests to evaluate vitamin D, B12, and thyroid levels. - Continue taking Omeprazole for GERD as directed. - Follow up in four months to reassess blood pressure management and overall health. - Seek medical attention if experiencing new or worsening symptoms.
[2024-10-12 14:04] VITALS: BP 152/90; BMI 25.2
== END 2024-10-12 14:27 | disposition home or self-care (01) ==
LOC: HO.HMCH 13:44
PROVIDERS: PCP Internal Medicine; Visit Provider Internal Medicine
DX: I10 Essential (primary) hypertension (principal); E06.3 Autoimmune thyroiditis; D51.0 Vitamin B12 deficiency anemia due to intrinsic factor deficiency; K21.9 Gastro-esophageal reflux disease without esophagitis; E55.9 Vitamin D deficiency, unspecified

== ENCOUNTER → 2024-10-12 13:43 | Outpatient (BNVA) | payer OTHER, SELFPAY | PROVIDERS: PCP Internal Medicine; Visit Provider Internal Medicine | DX: I10 Essential (primary) hypertension (principal); E06.3 Autoimmune thyroiditis; D51.0 Vitamin B12 deficiency anemia due to intrinsic factor deficiency; K21.9 Gastro-esophageal reflux disease without esophagitis; E55.9 Vitamin D deficiency, unspecified | CPT/HCPCS: 96127; 99212 ==

== ENCOUNTER 2025-03-03 13:35 | Outpatient (AMB) | payer OTHER, SELFPAY ==
--- OUTSIDE RECORDS SUMMARY | 2025-03-03 13:38 | XMS_ITS | Encounter Summary ---
Author Organization [employer] [facility] Address [address] [place] [address] Care Team Providers Care Parking Line Painter Name Role Phone Unavailable Primary Care Provider Unavailabl e Encounter Details Date Type Department Care Team (Latest Contact Info) Description 11/04/2018 Abstract C CONVERSIONS Dental, Provider, DDS Social History Tobacco Use Types Packs/Day Years Used Date Smoking Tobacco: Never Assessed Comments Unknown Sex and Gender Information Value Date Recorded Sex Assigned at Female 05/27/2022 10:18 AM EDT Legal Sex Female 10:18 AM EDT Gender Identity Not on file Sexual Orientation Not on file documented as of this encounter Plan of Treatment Not on file documented as of this encounter Visit Diagnoses Not on filedocumented in this encounter
[2025-03-03 13:45] VITALS: BP 138/90; BMI 25.8
--- NOTE | 2025-03-03 13:45 | MHC.PC.OV ---
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: No Accompanied by: Self / Same As Patient Allergies varenicline (From Chantix) Allergy (Intermediate, Verified 03/03/25 13:58) behavioral health barium sulfate Adverse Reaction (Intermediate, Verified 03/03/25 13:58) behavioral changes Medication List - Last Reconciled 03/03/25 by Brissa Peters MD cholecalciferol (vitamin D3) 25 mcg PO DAILY 90 days levothyroxine 150 mcg PO DAILY 90 days losartan 100 mg PO DAILY 90 days omeprazole 20 mg PO QAM 90 days verapamil ER 120 mg PO DAILY 90 days Tobacco use date assessed: 10/12/24 Dental Screening Dental Screen Date: 10/12/24 HPI HPI Comments History of Present Illness Details The patient is a 44-year-old female presenting with the management of chronic conditions and preventative care. She has a history of hypertension, managed with Losartan 100 mg, and her blood pressure readings have improved, with a recent measurement of 138/90 mmHg. The patient is allergic to Chantix, which previously caused an adverse reaction. She is on Levothyroxine 150 mcg for hypothyroidism, with stable thyroid function tests. Her gastroesophageal reflux disease is controlled with Omeprazole. The patient has a history of pernicious anemia, previously treated and resolved, with a plan to recheck Vitamin B12 levels in May. A small heart murmur was detected, and an echocardiogram has been ordered for further evaluation. She continues to smoke five cigarettes daily, and cessation has been encouraged. She regularly monitors her blood pressure at home. [facility] Medical History (Updated 03/03/25 @ 14:07 by Brissa Peters MD) GERD (gastroesophageal reflux disease) Hypovitaminosis D Autoimmune thyroiditis Pernicious anemia Surgical History History of tubal ligation Family History Father Hypertension Mother Diabetes Hypertension Hyperlipidemia Hypothyroidism Maternal Grandmother Breast cancer Maternal Aunt Diabetes Social History Housing: House Alcohol intake: current Alcohol intake frequency: holidays/special occasions only Alcohol type: beer Patient Tobacco Use Status: Current everyday Tobacco user Tobacco use type: Cigarette Cigarettes Per Day: 5 e-Cigarette/Vaping Use: Never Used Second Hand Smoke Exposure: No service: No Current occupational status: unemployed Cognitive needs: No Hearing needs: No Vision needs: No Questionnaire PHQ-9 Over the last 2 weeks, how often have you been bothered by any of the following problems? 1. Little interest or pleasure in doing things: not at all 2. Feeling down, depressed, or hopeless: not at all 3. Trouble falling or staying asleep, or sleeping too much: not at all 4. Feeling tired or having little energy: not at all 5. Poor appetite or overeating: not at all 6. Feeling bad about yourself - or that you are a failure or have let yourself or your family down: not at all 7. Trouble concentrating on things, such as reading the newspaper or watching television: not at all 8. Moving or speaking so slowly that other people could have noticed. Or the opposite - being so fidgety or restless that you have been moving around a lot more than usual: not at all 9. Thoughts that you would be better off or of hurting yourself in some way: not at all Total score: 0 Depression Screening Interpretation: Negative Depression Screening Done: Yes 96190 - PHQ-9 Billing: Yes Source: Developed by Drs. Andrew Toth, Kayla Junior, Ralph Matt and colleagues, with an educational husam from [employer]. Thrive Questionnaire Date Thrive assessed: 02/16/25 I am a: Patient What is your living situation today?: I have a steady place to live Within the past 12 months, did the food you bought not last and you didn't have the money to get more?: Sometimes True Within the past 12 months, did you worry whether your food would run out before you got money to buy more?: Sometimes True Do you have trouble paying for medicines?: No Do you have trouble getting transportation to medical appointments?: No Do you have trouble paying your heating and electricity bill?: No Do you have trouble taking care of your child, family member or friend?: No Do you have trouble with day-to-day activities such as bathing, preparing meals, shopping, managing finances, etc.?: No Are you currently unemployed and looking for a job?: No Are you interested in more education?: I choose not to answer this question Please select the resources that you would like help with: None Currently or been in a relationship where the following occur: No concerns reported THRIVE Score: 2 AUDIT C Alcohol Use Questionnaire (AUDIT-C) 1. How often do you have a drink containing alcohol?: Never 3. How often do you have six or more drinks on one occasion?: Never Total Score: 0 Score Reviewed/Action Taken: No SAMI-7 AMB Questionnaire SAMI-7 Date SAMI - 7 assessed: 10/12/24 Feeling nervous, anxious, or on edge: 0 = Not at all Not being able to stop or control worryin = Not at all Worrying too much about different things: 0 = Not at all Trouble relaxin = Not at all Being so restless that it is hard to sit still: 0 = Not at all Becoming easily annoyed or irritable: 0 = Not at all Feeling afraid as if something awful might happen: 0 = Not at all Total SAMI-7 score (0-4 normal; 5-9 mild; 10-14 moderate; 15-21 severe): 0 Source: Developed by Drs. Andrew Toth, Kayla Junior, Ralph Matt and colleagues, with an educational husam from [employer]. SAMI-7 Assessment Billing SAMI-7 Assessment Tool: SAMI-7 Assessment 90605 Review of Systems Const All systems reviewed & are unremarkable except as noted in HPI and below Card Denies chest pain at rest, Denies chest pain with activity, Denies edema, Denies irregular heart rhythm, Denies claudication, Denies dyspnea, Denies dyspnea on exertion, Denies orthopnea, Denies paroxysmal nocturnal dyspnea and Denies slow heart rate Resp Denies cough, Denies dyspnea and Denies dyspnea on exertion GI Denies abdominal pain, Denies change in bowel habits, Denies excessive flatus, Denies nausea and Denies vomiting Physical exam (Primary Care) Vital Signs: Last Vital Signs BP 138/90 H 03/03/25 13:45 BMI result Body Mass Index 25.8 Tobacco/Smoking Status: Tobacco use Status Tobacco use date assessed 10/12/24 03/03/25 13:49 Patient Tobacco Use Status Current everyday Tobacco 03/03/25 13:49 Tobacco use type Cigarette 03/03/25 13:49 e-Cigarette/Vaping Use Never Used 03/03/25 13:49 Are you ready to quit: No Tobacco cessation counseling provided: Yes Items discussed: Nicotine replacement and QuitWorks Relapse Prevention: discussed the importance of a supportive environment, discussed negative mood or depression after quitting, weight gain after smoking is common and discussed dietary, exercise and/or lifestyle changes Number of minutes spent counselin CPT code: 15285 - 4-10 Minutes PHQ-9: PHQ-9 Score PHQ-9: Total score 0 03/03/25 13:49 Depression Screening Interpretation: Negative Thrive Assessment: Date of Thrive Assessment Date Thrive assessed 02/16/25 03/03/25 13:49 Currently or been in a relationship where the following occur: No concerns reported Resp Effort & Inspection: normal respiratory effort Auscultation: clear to auscultation bilaterally Cardio Jugular venous distension: no JVD Rate: regular rate Rhythm: regular rhythm Heart sounds: S1 normal heart sound present and S2 normal heart sound present Extrem General: Yes full ROM Coding Level of Care Code Est Pt Level 4 (81318) Complex EM visit Add On G2211 Diagnoses Essential hypertension I10 Murmur R01.1 Autoimmune thyroiditis E06.3 Hypovitaminosis D E55.9 Gastroesophageal reflux disease, unspecified whether esophagitis present K21.9 Esophagitis presence: esophagitis presence not specified Additional Codes PHQ-9 - 73647 - PHQ-9 Billing: Yes ([id number]) SAMI-7 Assessment Billing - SAMI-7 Assessment Tool: SAMI-7 Assessment 55354 ([id number]) Vital Signs *Quality* - CPT code: 46598 - 4-10 Minutes ([id number]) Time Spent (min) 24 Assessment & Plan Assessment & Plan (1) Essential hypertension: Code(s): I10 - Essential (primary) hypertension Category: Medical (2) Murmur: Code(s): R01.1 - Cardiac murmur, unspecified Category: Medical (3) Autoimmune thyroiditis: Code(s): E06.3 - Autoimmune thyroiditis Category: Medical (4) Hypovitaminosis D: Code(s): E55.9 - Vitamin D deficiency, unspecified Category: Medical (5) GERD (gastroesophageal reflux disease): Code(s): K21.9 - Gastro-esophageal reflux disease without esophagitis Category: Medical Qualifiers: Esophagitis presence: esophagitis presence not specified Qualified Code(s): K21.9 - Gastro-esophageal reflux disease without esophagitis Plan The patient's hypertension management with Losartan will continue without changes due to its effectiveness. An echocardiogram is scheduled to assess the heart murmur, though it is not urgent. Scheduled laboratory tests in May will include cholesterol, thyroid, glucose, renal function, and Vitamin levels. The patient should maintain her current medication regimen, including Levothyroxine and Omeprazole. Smoking cessation is encouraged, and regular home blood pressure monitoring is advised. Patient was informed and verbally consented to the use of an ambient scribe for clinic note documentation during this visit. Orders: Orders CA echo transthoracic complete Today R01.1 - Cardiac murmur, unspecified Vitamin D 25-OH Total 3 Months E55.9 - Vitamin D deficiency, unspecified Complete Blood Count Auto Diff 3 Months D64.9 - Anemia, unspecified IRON PROFILE 3 Months D64.9 - Anemia, unspecified Comprehensive [place]. Panel Fast 3 Months I10 - Essential (primary) hypertension Lipid Panel 3 Months E78.5 - Hyperlipidemia, unspecified Vitamin B12 and Folate 3 Months E53.8 - Deficiency of other specified B group vitamins Thyroid Stimulating Hormone 3 Months E06.3 - Autoimmune thyroiditis Medications: Refilled omeprazole 20 mg PO QAM 90 caps 1RF 90 days
== END 2025-03-03 14:07 | disposition home or self-care (01) ==
LOC: HO.HMCH 13:36
PROVIDERS: PCP Internal Medicine; Visit Provider Internal Medicine
DX: I10 Essential (primary) hypertension (principal); R01.1 Cardiac murmur, unspecified; E06.3 Autoimmune thyroiditis; E55.9 Vitamin D deficiency, unspecified; K21.9 Gastro-esophageal reflux disease without esophagitis

== ENCOUNTER → 2025-03-03 13:35 | Outpatient (BNVA) | payer OTHER, SELFPAY | PROVIDERS: PCP Internal Medicine; Visit Provider Internal Medicine | DX: I10 Essential (primary) hypertension (principal); K21.9 Gastro-esophageal reflux disease without esophagitis; R01.1 Cardiac murmur, unspecified; E06.3 Autoimmune thyroiditis; E55.9 Vitamin D deficiency, unspecified; D64.9 Anemia, unspecified; E78.5 Hyperlipidemia, unspecified; E53.8 Deficiency of other specified B group vitamins; F17.210 Nicotine dependence, cigarettes, uncomplicated; Z71.6 Tobacco abuse counseling; Z79.899 Other long term (current) drug therapy | CPT/HCPCS: 96127; 99212 ==

== ENCOUNTER → 2025-04-14 12:28 | Outpatient (REF) | payer OTHER, SELFPAY ==
--- NOTE | 2025-04-14 12:31 | CA_ITS ---
Transthoracic Echocardiogram Patient (Last, First, Middle): Indu Nixon, Gender: Female Date of : 1980 Age: 44 Procedure Date: 04/14/2025 Procedure Type: Transthoracic Echocardiogram Location: OP Height: 157.48 cm Weight: 63.96 kg BSA: 1.65 m2 Heart Rate: bpm BP: 138 / 90 mmHg Cafeteria Counter Attendant: DUSTIN Referring MD: Brissa Peters MD Symptoms: R01.1 - Cardiac murmur, unspecified Study Quality: Adequate ECG Rhythm: Sinus Conclusions: - The left ventricular systolic function is normal. The calculated ejection fraction is 65% by biplane method. - No obvious valvular pathology seen on this study. Findings Left Ventricle Normal left ventricular cavity size. There is normal left ventricular wall thickness. The left ventricular systolic function is normal. The calculated ejection fraction is 65% by biplane method. There is no evidence of regional wall motion abnormalities. Diastolic function is normal for age. Right Ventricle Normal right ventricular cavity size and systolic function. Atria Both atria are normal in size. Aortic Valve The aortic valve was not well visualized. There is no aortic valve stenosis. There is no aortic valve regurgitation. Mitral Valve The mitral valve appears normal. There is no mitral valve regurgitation. There is no mitral valve stenosis. Pulmonic Valve The pulmonic valve is likely normal. Tricuspid Valve There is trace tricuspid valve regurgitation. There is no evidence of pulmonary hypertension. Great Vessels The sinuses of valsalva, sino tubular ridge, asc aorta, and aortic arch are normal in size. Venous The inferior vena cava is normal in size and collapses greater than 50% with inspiration. Pericardium/Pleural There is no evidence of pericardial effusion. Prior Study Comparison No significant change compared to prior study dated: 06/15/2014. Recommendations, Care & Conclusions No obvious valvular pathology seen on this study. Measurements 2D Linear Measurements IVSd: 0.59 0.6-0.9/0.6-1.0 cm LVIDd: 4.58 3.9-5.3/4.2-5.9 cm LVIDd Index: 2.78 2.4-3.2/2.2-3.1 cm/m2 LVIDs: 3.25 2.0-3.6 cm LVPWd: 0.80 0.7-1.1 cm LA Diam: 2.90 2.7-3.8/3.0-4.0 cm LAIDs Index: 1.76 1.5-2.3 cm/m2 LV Mass: 120.82 67-162/88-224 g LV Mass Index: 73.22 43-95/49-115 g/m2 LVOT Diam: 2.00 3.0+(-)1.3 cm 2D Systolic Function EF 4C: 61.70 >55% EF 2C: 67.40 >55% EF BiP: 64.50 >55% Mitral Valve MV Pk E: 0.96 MV PK A: 0.77 MV Decel Time: 273.00 E/A: 1.20 E'Lateral: 13.50 E'Medial: 7.51 E/E' Med: 12.80 E/E' Lat: 7.10 PHT: 80.00 MVA PHT: 2.75 Decel Kendall: 3.52 Aortic Valve AoV Pk Junior: 1.64 AoV Mn Junior: 1.14 AoV VTI: 0.36 AoV Pk Grad: 11.00 Aov Mn Grad: 6.00 KATIA Cont.VTI: 2.52 LVOT LVOT Pk Junior: 1.37 LVOT Mn Junior: 0.88 LVOT VTI: 0.29 LVOT Pk Grad: 8.00 LVOT Mn Grad: 4.00 LVOT Diam: 2.00 LVOT Area: 3.14 Diastolic Function MV Pk E: 0.96 MV Pk A: 0.77 E/A: 1.20 E'Medial: 7.51 E/E' Med: 12.80 E' Laterial: 13.50 E/E' Lat: 7.10 Right Ventricle TAPSE (mm): 28.90 TVS' Junior: 14.00 Tricuspid Valve RA Press: 3.00 Great Vessels Aorta Sinus of Valsalva: 2.95 2.0-3.[address] Ridge: 2.50 1.7-3.4 cm Ao Asc: 3.10 2.1-3.4 cm Ao Arch: 3.10 Pulmonary Veins Pulm Vein S/D 1.20 Updated in Other Vendor System with Status of Final Marek Hernandez MD electronically signed on 04/15/2025 4:14:18 PM with status of Final
--- OUTSIDE RECORDS SUMMARY | 2025-04-14 14:36 | XMS_ITS | Clinical Summary ---
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 Name Role Phone Unavailable Primary Care Provider Unavailabl e Social History Tobacco Use Types Packs/Day Years Used Date Smoking Tobacco: Never Assessed Comments Unknown Sex and Gender Information Value Date Recorded Sex Assigned at Female 05/27/2022 10:18 AM EDT Legal Sex Female 10:18 AM EDT Gender Identity Not on file Sexual Orientation Not on file Plan of Treatment Health Maintenance Due Date Last Done Comments CT Colonography 1979 Colonoscopy 1979 Colorectal Cancer Screening 1979 Depression Screening 1979 FIT DNA/Cologuard 1979 FIT 1979 FOBT 1979 Sigmoidoscopy 1979 Disability Screening 1979 Alcohol/Substance Use Screening 1991 Tobacco Screening 1991 Family Planning (PISQ) 1994 HPV Vaccines (1 - 3-dose series) 1994 DTaP/Tdap/Td Vaccines (1 - Tdap) 1998 Hepatitis B Vaccines (1 of 3 - 19+ 3-dose series) 1998 Pap Smear 2000 Cervical Cancer Screening 2009 HPV/Cotest 2009 Mammogram 2019 COVID-19 Vaccine ( - 2023-2 5 season) 2025 Influenza Vaccine (#1) 2025 Zoster Vaccines (1 of 2) 2029 RSV Patients and Pa tients Aged 60 years or older (1 - 1-dose 75+ series) 2054 HIB Vaccines Aged Out No longer eligi ble based on patient's age to complete this topic Hepatitis A Vaccines Aged Out No long er eligible based on patient's age to complete this topic IPV Vaccines Aged Out No longer eligi ble based on patient's age to complete this topic Meningococcal B Vaccine Aged Out No l onger eligible based on patient's age to complete this topic Meningococcal Vaccine Aged Out No mira marlen eligible based on patient's age to complete this topic Pneumococcal Vaccine: Pediat rics (0 to 5 Years) and At-Risk Patients (6 to 49) Years Aged Out No longer eligible b ased on patient's age to complete this topic RSV under 20 months Aged Out No longe r eligible based on patient's age to complete this topic Rotavirus Vaccines Aged Out No longer eligible based on patient's age to complete this topic
--- OUTSIDE RECORDS SUMMARY | 2025-04-14 14:36 | XMS_ITS | Encounter Summary ---
Author Organization [employer] [facility] Address [address] [place] [address] Care Team Providers Care Crusher Feeder Name Role Phone Unavailable Primary Care Provider [...]
== END ==
LOC: HO.CARD 12:28
PROVIDERS: PCP Internal Medicine; Visit Provider Internal Medicine
DX: R01.1 Cardiac murmur, unspecified (principal)
CPT/HCPCS: 93306

== ENCOUNTER → 2025-04-14 12:31 | Outpatient (BNV) | payer OTHER, SELFPAY | PROVIDERS: PCP Internal Medicine; Visit Provider Internal Medicine | DX: R01.1 Cardiac murmur, unspecified (principal) | CPT/HCPCS: 93306 ==

== ENCOUNTER 2025-06-10 08:28 | Outpatient (REF) | payer OTHER, SELFPAY ==
[2025-06-10 08:40] LABS: MANUAL DIFF FLAG NO
--- OUTSIDE RECORDS SUMMARY | 2025-06-10 08:42 | XMS_ITS | Clinical Summary ---
Author Organization [employer] Address [address] [place] [address] Care Team Providers Care Newspaper Photo Editor Name Role Phone Unavailable Primary Care Provider [...] Tobacco Screening 1991 Family Planning (PISQ) 1994 DTaP/Tdap/Td Vaccines (1 - Tdap) 1998 [...] on patient's age to complete this topic HPV Vaccines Aged Out No longer eligi ble [...]
--- OUTSIDE RECORDS SUMMARY | 2025-06-10 08:42 | XMS_ITS | Encounter Summary ---
Author Organization [employer] [facility] Address [address] [place] [address] Care Team Providers Care Electoral Officer Name Role Phone Unavailable Primary Care Provider [...]
[2025-06-10 09:12] LABS: Hematocrit 38.4 % (37.0-47.0); Hemoglobin 12.6 g/dl (12.0-16.0); Imm Gran Abs Auto 0.02 X10*3/uL (0.00-0.03); Imm Gran Pct Auto 0.2 % (0.0-0.4); Lymphocytes Absolute Auto 2.5 X10*3/uL (1.2-4.9); Mean Corpuscular HGB Conc 32.8 g/dl (31.0-35.0); Mean Corpuscular Hemoglobin 28.8 pg (27.0-33.0); Mean Corpuscular Volume 87.7 fL (80.0-98.0); NRBC Abs Auto 0.000 X10*3/uL (0.0-0.012); NRBC Pct Auto 0.0 /100WBC (0.0-0.2); Platelet Count 241 X10*3/uL (160-400); Red Blood Count 4.38 X10*6/uL (4.20-5.50); White Blood Count 9.2 X10*3/uL (4.8-10.8)
[2025-06-10 09:49] LABS: Alanine Aminotransferase 8 U/L (0-31); Albumin Level 4.1 g/dL (3.5-5.0); Alkaline Phosphatase 75 U/L (39-117); Anion Gap 11 (12-20); Aspartate Amino Transferase 17 U/L (5-31); Blood Urea Nitrogen 8 mg/dL (9-16); Calcium 8.9 mg/dL (8.4-10.2); Carbon Dioxide 23 mmol/L (22-29); Chloride 110 mmol/L (96-108); Cholesterol 137 mg/dL (<200); Estimated Glomerular Filt Rate > 60; HDL Cholesterol 40 mg/dL (>40); Iron 58 mcg/dL (30-160); Percent Iron Saturation 26 % (15-50); Potassium 4.4 mmol/L (3.3-5.1); Sodium 140 mmol/L (135-145); Total Iron Binding Capacity 220 mcg/dL (228-428); Total Protein 6.5 g/dL (6.5-8.0); Triglycerides 59 mg/dL (<150); Unsaturated Iron Binding 162 ug/dL
[2025-06-10 10:07] LABS: Thyroid Stimulating Hormone 0.66 uIU/mL (0.32-4.0)
[2025-06-10 10:22] LABS: Folate 5.8 ng/mL (> or = 4.0); Vitamin B12 254 pg/mL (200-900)
== END 2025-06-10 08:29 | disposition home or self-care (01) ==
LOC: HO.LAB 08:28
PROVIDERS: PCP Internal Medicine; Visit Provider Internal Medicine
DX: E53.8 Deficiency of other specified B group vitamins (principal); D64.9 Anemia, unspecified; E55.9 Vitamin D deficiency, unspecified; E78.5 Hyperlipidemia, unspecified; E06.3 Autoimmune thyroiditis; I10 Essential (primary) hypertension
CPT/HCPCS: 36415; 80053; 80061; 82306; 82607; 82746; 83540; 84443; 85025